=== PATIENT | male | born 1965 | race African-American/Black ===

== ENCOUNTER 2018-02-24 19:21 | Observation (INO) ==
[2018-02-24] MEDS ORDERED: 0.9 % Sodium Chloride 1,000 ML IVC ONE (19:25)
--- NOTE | 2018-02-24 19:31 | Emergency Department Note ---
Disposition Clinical Impression: Suicidal ideation Disposition: Still a Patient Referrals: Winston Hatch DO [Primary Care Provider] - Forms: ED Satisfaction Letter General Adult HPI - General Time Seen by Provider: 02/24/18 19:24 Nursing Notes Reviewed: Yes Vital Signs Reviewed: Yes - Related Data Home Medications Medication Instructions Recorded Confirmed Atenolol 01/27/17 Lisinopril 01/27/17 01/27/17 NIFEdipine 01/27/17 Simvastatin 01/27/17 Previous Rx's Medication Instructions Recorded Cetirizine HCl [Zyrtec] 10 mg PO DAILY #4 capsule 01/27/17 Ondansetron ODT [Zofran ODT] 4 mg SL Q6HR PRN #10 tab.rapdis 01/27/17 Allergies Allergy/AdvReac Type Severity Reaction Status Date / Time No Known Allergies Allergy Verified 01/27/17 10:08 Past Medical History - Past Medical History Medical history: Reports: hyperlipidemia, hypertension Surgical history: Reports: no surgical history Psychiatric history: Reports: no psych history - Social History Smoking Status: Never smoker Smokeless Tobacco Status: No Alcohol use: Reports: occasionally Drug use: Reports: none Course Vital Signs Temperature 98.1 F 02/24/18 19:26 Pulse Rate 87 02/24/18 19:26 Respiratory Rate 23 02/24/18 19:26 Blood Pressure 94/56 02/24/18 19:26 O2 Sat by Pulse Oximetry 91 02/24/18 19:26 Temperature 98.1 F 02/24/18 19:26 Pulse Rate 87 02/24/18 19:26 Respiratory Rate 23 02/24/18 19:26 Blood Pressure 94/56 02/24/18 19:26 O2 Sat by Pulse Oximetry 91 02/24/18 19:26 Oxygen Delivery Oxygen Delivery Room Air Medical Decision Making - [facility] Narrative Medical decision making narrative: 0 hrs.: Patient seen and evaluated here and he is done better he is awake and talking he is up and ambulatory. His alcohol 355. He is calm going to have to be sober for an exam by 1A so we will sign him out to the evening ER physician Dr. Herbert for [facility] management disposition. He did get 2 mg of Ativan here to help him calm down a bit I do not think he is in withdrawal at this point and I do not think he needs IV fluids as he had an IV and a pull that out; [employer] an IV in him and he was sees absolutely requires. Patient's in agreement and is calm at this time. Impressions are: Intoxication and suicidal ideations. - Lab Data Result diagrams: 02/24/18 20:21 02/24/18 20:21 Lab Results 02/24/18 02/24/18 02/24/18 Range/Units 19:57 19:57 20:21 WBC 7.0 (4.3-11.1) K/mcL RBC 4.63 (4.19-5.50) M/mcL Hgb 13.0 (12.9-16.9) g/dL Hct 38.4 (37.5-50.1) % MCV 82.9 L (83.0-100.0) fL MCH 28.1 (28.0-33.3) pg MCHC 33.9 (31.6-35.5) g/dL RDW 16.1 H (11.5-14.5) % Plt Count 298 (140-400) K/mcL MPV 9.5 (9.4-12.4) fL Immature Gran % 0.3 (0-4) % Seg Neutrophils % 72.9 % Lymphocytes % 20.1 % Monocytes % 5.7 % Eosinophils % 0.1 % Basophils % 0.9 % Neutrophils # 5.1 (1.6-8.9) K/mcL Lymphocytes # 1.4 (0.6-4.6) K/mcL Monocytes # 0.4 (0.0-1.3) K/mcL Eosinophils # 0.0 (0.0-0.6) K/mcL Basophils # 0.1 (0.0-0.2) K/mcL Sodium (136-145) mEq/L Potassium (3.5-5.1) mEq/L Chloride (98-107) mEq/L Carbon Dioxide (23-29) mEq/L BUN (6-20) mg/dL Creatinine (0.70-1.30) mg/dL Est GFR ( Amer) (> 60) Est GFR (Non-Af Amer) (> 60) BUN/Creatinine Ratio (6-26) Glucose (70-105) mg/dL Calculated Osmolality (280-300) Calcium (8.6-10.3) mg/dL Total Bilirubin (0.3-1.0) mg/dL AST (13-39) Units/L ALT (7-52) Units/L Alkaline Phosphatase (34-104) Units/L Troponin I (< 0.04) ng/mL Serum Total Protein (6.4-8.9) g/dL Albumin (3.5-5.7) g/dL Globulin (2.4-3.5) g/dL Albumin/Globulin Ratio (1.1-2.2) Lipase (11-82) Units/L Urine Color Yellow (Yellow) Urine Clarity Cloudy A (Clear) Urine pH 6.0 (5.0-8.0) pH Units Ur Specific Byers 1.019 (1.010-1.025) Urine Protein 30 H (Neg-Trace) mg/dL Urine Glucose (UA) Normal (Normal) mg/dL Urine Ketones Trace H (Negative) mg/dL Urine Blood Moderate H (Negative) Urine Nitrite Negative (Negative) Urine Bilirubin Negative (Negative) Urine Urobilinogen Normal (Normal) mg/dL Ur Leukocyte Esterase Negative (Negative) Urine Microscopic RBC 0-3 (0-3) per hpf Urine Microscopic WBC 0-3 (0-3) per hpf Ur Squamous Epith Cells Many H (None-Few) per lpf Urine Bacteria None Seen (None-Few) per hpf Hyaline Casts Moderate H (None-Few) per lpf Ur Culture Indicated? NO (NO) Salicylates (15.0-30.0) mg/dL Urine Opiates Screen Negative (Yinvva=290) ng/mL Acetaminophen (10-20) mcg/mL Ur Barbiturates Screen Negative (Yclwmh=668) ng/mL Ur Phencyclidine Scrn Negative (Cutoff=25) ng/mL Ur Amphetamines Screen Negative (Nnxetu=9376) ng/mL U Benzodiazepines Scrn Negative (Furtmk=328) ng/mL Urine Cocaine Screen Negative (Cutoff= 300) ng/mL U Marijuana (THC) Screen Negative (Cutoff = 50) ng/mL Ur Drug Screen Interp See Below Ethyl Alcohol (Less than 10) mg/dL 02/24/18 Range/Units 20:21 WBC (4.3-11.1) K/mcL RBC (4.19-5.50) M/mcL Hgb (12.9-16.9) g/dL Hct (37.5-50.1) % MCV (83.0-100.0) fL MCH (28.0-33.3) pg MCHC (31.6-35.5) g/dL RDW (11.5-14.5) % Plt Count (140-400) K/mcL MPV (9.4-12.4) fL Immature Gran % (0-4) % Seg Neutrophils % % Lymphocytes % % Monocytes % % Eosinophils % % Basophils % % Neutrophils # (1.6-8.9) K/mcL Lymphocytes # (0.6-4.6) K/mcL Monocytes # (0.0-1.3) K/mcL Eosinophils # (0.0-0.6) K/mcL Basophils # (0.0-0.2) K/mcL Sodium 141 (136-145) mEq/L Potassium 3.6 (3.5-5.1) mEq/L Chloride 103 (98-107) mEq/L Carbon Dioxide 18 L (23-29) mEq/L BUN 23 H (6-20) mg/dL Creatinine 1.38 H (0.70-1.30) mg/dL Est GFR ( Amer) > 60 (> 60) Est GFR (Non-Af Amer) 54 L (> 60) BUN/Creatinine Ratio 17 (6-26) Glucose 126 H (70-105) mg/dL Calculated Osmolality 297 (280-300) Calcium 8.9 (8.6-10.3) mg/dL Total Bilirubin 1.6 H (0.3-1.0) mg/dL AST 102 H (13-39) Units/L ALT 44 (7-52) Units/L Alkaline Phosphatase 56 (34-104) Units/L Troponin I < 0.03 (< 0.04) ng/mL Serum Total Protein 7.2 (6.4-8.9) g/dL Albumin 4.4 (3.5-5.7) g/dL Globulin 2.8 (2.4-3.5) g/dL Albumin/Globulin Ratio 1.6 (1.1-2.2) Lipase 59 (11-82) Units/L Urine Color (Yellow) Urine Clarity (Clear) Urine pH (5.0-8.0) pH Units Ur Specific Byers (1.010-1.025) Urine Protein (Neg-Trace) mg/dL Urine Glucose (UA) (Normal) mg/dL Urine Ketones (Negative) mg/dL Urine Blood (Negative) Urine Nitrite (Negative) Urine Bilirubin (Negative) Urine Urobilinogen (Normal) mg/dL Ur Leukocyte Esterase (Negative) Urine Microscopic RBC (0-3) per hpf Urine Microscopic WBC (0-3) per hpf Ur Squamous Epith Cells (None-Few) per lpf Urine Bacteria (None-Few) per hpf Hyaline Casts (None-Few) per lpf Ur Culture Indicated? (NO) Salicylates < 2.5 L (15.0-30.0) mg/dL Urine Opiates Screen (Urgnec=350) ng/mL Acetaminophen < 10 L (10-20) mcg/mL Ur Barbiturates Screen (Hatkgt=656) ng/mL Ur Phencyclidine Scrn (Cutoff=25) ng/mL Ur Amphetamines Screen (Arytox=2305) ng/mL U Benzodiazepines Scrn (Zlqwet=720) ng/mL Urine Cocaine Screen (Cutoff= 300) ng/mL U Marijuana (THC) Screen (Cutoff = 50) ng/mL Ur Drug Screen Interp Ethyl Alcohol 344 H (Less than 10) mg/dL Attestation Statement - Attestation Attestation: This documentation is done with the assistance of Dragon dictation. Despite efforts made to ensure accuracy, there may be inaccuracies in retail customer service representative or spelling and typographical errors. I examined this patient and my medical decision-making was reviewed with the Resident Physician. I agree with the documented findings, disposition and treatment plan as described except to the extent set forth below. Patient seen and evaluated on arrival with EMS and Dr. Roque, I agree with his evaluation and management plan, supervise care the patient stay. Patient was making suicidal comments to his family they called the squad they said there is multiple guns in the household or alcohol. If hypertensive meds there but they appeared to be correct he denies overdose. He does appear intoxicated. He has not been very cooperative. But is not trying to assault anyone. We will place him on a 72 or hold check labs hydrate with fluids CT has had EKG alcohol level urine drug screen. And then determine best placement for him with every medical or that will be psychiatric.
--- NOTE | 2018-02-24 19:33 | Emergency Department Note ---
Disposition Clinical Impression: Suicidal ideation, Drug-induced psychotic disorder, Alcohol intoxication Disposition: Still a Patient Referrals: Winston Hatch DO [Non-Partnered Physician] - Forms: ED Satisfaction Letter General Adult HPI - General Chief complaint: ED Psychiatric Symptoms Stated complaint: Altered mental status Time Seen by Provider: 02/24/18 19:24 Source: EMS Mode of arrival: EMS Limitations: altered mental status Nursing Notes Reviewed: Yes Vital Signs Reviewed: Yes - History of Present Illness HPI Narrative: 52-year-old male unknown medical history presents to the ER via EMS due to altered mental status. EMS reports they were called by family. They state that the family told them that he was calling them and having suicidal thoughts. When they picked him up he was altered and sluggish to respond. He kept telling EMS sorry. Upon arrival he appears intoxicated. When asked anything he rolls over and he says to leave him alone. He provides no other medical history. No other complaints. Onset (ago): unknown Pain Scale: 0 - Related Data Home Medications Medication Instructions Recorded Confirmed Atenolol 01/27/17 Lisinopril 01/27/17 01/27/17 NIFEdipine 01/27/17 Simvastatin 01/27/17 Previous Rx's Medication Instructions Recorded Cetirizine HCl [Zyrtec] 10 mg PO DAILY #4 capsule 01/27/17 Ondansetron ODT [Zofran ODT] 4 mg SL Q6HR PRN #10 tab.rapdis 01/27/17 Allergies Allergy/AdvReac Type Severity Reaction Status Date / Time No Known Allergies Allergy Verified 01/27/17 10:08 Limitations: ROS unobtainable due to patients medical condition Past Medical History - Past Medical History Source: unable to obtain Medical history: Reports: hyperlipidemia, hypertension Surgical history: Reports: no surgical history Psychiatric history: Reports: no psych history - Social History Smoking Status: Never smoker Smokeless Tobacco Status: No Alcohol use: Reports: occasionally Drug use: Reports: none Physical Exam - General Limitations: altered mental status General appearance: appears intoxicated - Head Head exam: atraumatic, normocephalic - Eye Eye exam: Present: normal appearance - ENT ENT exam: normal exam - Neck Neck exam: Present: normal inspection - Chest Chest inspection: Present: normal inspection, symmetric chest wall rise - Respiratory Respiratory exam: Present: normal lung sounds bilaterally - Cardiovascular Cardiovascular exam: Present: regular rate, normal rhythm, normal heart sounds - Abdominal Exam Abdominal exam: Present: soft, Non-Tender. Absent: tenderness - Extremities Exam Extremities exam: Present: normal inspection - Expanded Upper Extremity Exam Shoulder exam: Present: normal inspection Arm exam: Present: normal inspection Elbow exam: Present: normal inspection Forearm/Wrist exam: Present: normal inspection Hand exam: Present: normal inspection - Expanded Lower Extremity Exam Hip/Pelvis exam: Present: normal inspection Upper leg exam: Present: normal inspection Knee exam: Present: normal inspection Lower leg exam: Present: normal inspection Ankle exam: Present: normal inspection Foot/toe exam: Present: normal inspection - Neurological Exam Neurological exam: Present: other (Altered, appears intoxicated.) Course Course Narrative: Patient seen and examined. Vital signs reviewed. Unable to obtain history. Plan for CT head, labs and urinalysis. Vital Signs Temperature 98.1 F 02/24/18 19:26 Pulse Rate 87 02/24/18 19:26 Respiratory Rate 23 02/24/18 19:26 Blood Pressure 94/56 02/24/18 19:26 O2 Sat by Pulse Oximetry 91 02/24/18 19:26 Temperature 98.1 F 02/24/18 19:26 Pulse Rate 91 02/24/18 22:17 Respiratory Rate 18 02/24/18 22:17 Blood Pressure 122/73 02/24/18 22:17 O2 Sat by Pulse Oximetry 95 02/24/18 22:17 Oxygen Delivery Oxygen Delivery Room Air Medical Decision Making - [facility] Narrative Medical decision making narrative: 2220 hrs.: Patient's alcohol level is elevated. His alcohol level needs be below 100 before 1A was evaluating. No sign him out to the evening ER physician Dr. Herbert for further management disposition. patient remains in her 72R hold. - Lab Data Result diagrams: 02/24/18 20:21 02/24/18 20:21 Lab Results 02/24/18 02/24/18 02/24/18 Range/Units 19:57 19:57 20:21 WBC 7.0 (4.3-11.1) K/mcL RBC 4.63 (4.19-5.50) M/mcL Hgb 13.0 (12.9-16.9) g/dL Hct 38.4 (37.5-50.1) % MCV 82.9 L (83.0-100.0) fL MCH 28.1 (28.0-33.3) pg MCHC 33.9 (31.6-35.5) g/dL RDW 16.1 H (11.5-14.5) % Plt Count 298 (140-400) K/mcL MPV 9.5 (9.4-12.4) fL Immature Gran % 0.3 (0-4) % Seg Neutrophils % 72.9 % Lymphocytes % 20.1 % Monocytes % 5.7 % Eosinophils % 0.1 % Basophils % 0.9 % Neutrophils # 5.1 (1.6-8.9) K/mcL Lymphocytes # 1.4 (0.6-4.6) K/mcL Monocytes # 0.4 (0.0-1.3) K/mcL Eosinophils # 0.0 (0.0-0.6) K/mcL Basophils # 0.1 (0.0-0.2) K/mcL Sodium (136-145) mEq/L Potassium (3.5-5.1) mEq/L Chloride (98-107) mEq/L Carbon Dioxide (23-29) mEq/L BUN (6-20) mg/dL Creatinine (0.70-1.30) mg/dL Est GFR ( Amer) (> 60) Est GFR (Non-Af Amer) (> 60) BUN/Creatinine Ratio (6-26) Glucose (70-105) mg/dL Calculated Osmolality (280-300) Calcium (8.6-10.3) mg/dL Total Bilirubin (0.3-1.0) mg/dL AST (13-39) Units/L ALT (7-52) Units/L Alkaline Phosphatase (34-104) Units/L Troponin I (< 0.04) ng/mL Serum Total Protein (6.4-8.9) g/dL Albumin (3.5-5.7) g/dL Globulin (2.4-3.5) g/dL Albumin/Globulin Ratio (1.1-2.2) Lipase (11-82) Units/L Urine Color Yellow (Yellow) Urine Clarity Cloudy A (Clear) Urine pH 6.0 (5.0-8.0) pH Units Ur Specific Kingsley 1.019 (1.010-1.025) Urine Protein 30 H (Neg-Trace) mg/dL Urine Glucose (UA) Normal (Normal) mg/dL Urine Ketones Trace H (Negative) mg/dL Urine Blood Moderate H (Negative) Urine Nitrite Negative (Negative) Urine Bilirubin Negative (Negative) Urine Urobilinogen Normal (Normal) mg/dL Ur Leukocyte Esterase Negative (Negative) Urine Microscopic RBC 0-3 (0-3) per hpf Urine Microscopic WBC 0-3 (0-3) per hpf Ur Squamous Epith Cells Many H (None-Few) per lpf Urine Bacteria None Seen (None-Few) per hpf Hyaline Casts Moderate H (None-Few) per lpf Ur Culture Indicated? NO (NO) Salicylates (15.0-30.0) mg/dL Urine Opiates Screen Negative (Apcyyn=991) ng/mL Acetaminophen (10-20) mcg/mL Ur Barbiturates Screen Negative (Jwrnts=107) ng/mL Ur Phencyclidine Scrn Negative (Cutoff=25) ng/mL Ur Amphetamines Screen Negative (Hxqxxq=1219) ng/mL U Benzodiazepines Scrn Negative (Vwexef=280) ng/mL Urine Cocaine Screen Negative (Cutoff= 300) ng/mL U Marijuana (THC) Screen Negative (Cutoff = 50) ng/mL Ur Drug Screen Interp See Below Ethyl Alcohol (Less than 10) mg/dL 02/24/18 Range/Units 20:21 WBC (4.3-11.1) K/mcL RBC (4.19-5.50) M/mcL Hgb (12.9-16.9) g/dL Hct (37.5-50.1) % MCV (83.0-100.0) fL MCH (28.0-33.3) pg MCHC (31.6-35.5) g/dL RDW (11.5-14.5) % Plt Count (140-400) K/mcL MPV (9.4-12.4) fL Immature Gran % (0-4) % Seg Neutrophils % % Lymphocytes % % Monocytes % % Eosinophils % % Basophils % % Neutrophils # (1.6-8.9) K/mcL Lymphocytes # (0.6-4.6) K/mcL Monocytes # (0.0-1.3) K/mcL Eosinophils # (0.0-0.6) K/mcL Basophils # (0.0-0.2) K/mcL Sodium 141 (136-145) mEq/L Potassium 3.6 (3.5-5.1) mEq/L Chloride 103 (98-107) mEq/L Carbon Dioxide 18 L (23-29) mEq/L BUN 23 H (6-20) mg/dL Creatinine 1.38 H (0.70-1.30) mg/dL Est GFR ( Amer) > 60 (> 60) Est GFR (Non-Af Amer) 54 L (> 60) BUN/Creatinine Ratio 17 (6-26) Glucose 126 H (70-105) mg/dL Calculated Osmolality 297 (280-300) Calcium 8.9 (8.6-10.3) mg/dL Total Bilirubin 1.6 H (0.3-1.0) mg/dL AST 102 H (13-39) Units/L ALT 44 (7-52) Units/L Alkaline Phosphatase 56 (34-104) Units/L Troponin I < 0.03 (< 0.04) ng/mL Serum Total Protein 7.2 (6.4-8.9) g/dL Albumin 4.4 (3.5-5.7) g/dL Globulin 2.8 (2.4-3.5) g/dL Albumin/Globulin Ratio 1.6 (1.1-2.2) Lipase 59 (11-82) Units/L Urine Color (Yellow) Urine Clarity (Clear) Urine pH (5.0-8.0) pH Units Ur Specific Kingsley (1.010-1.025) Urine Protein (Neg-Trace) mg/dL Urine Glucose (UA) (Normal) mg/dL Urine Ketones (Negative) mg/dL Urine Blood (Negative) Urine Nitrite (Negative) Urine Bilirubin (Negative) Urine Urobilinogen (Normal) mg/dL Ur Leukocyte Esterase (Negative) Urine Microscopic RBC (0-3) per hpf Urine Microscopic WBC (0-3) per hpf Ur Squamous Epith Cells (None-Few) per lpf Urine Bacteria (None-Few) per hpf Hyaline Casts (None-Few) per lpf Ur Culture Indicated? (NO) Salicylates < 2.5 L (15.0-30.0) mg/dL Urine Opiates Screen (Feivjh=838) ng/mL Acetaminophen < 10 L (10-20) mcg/mL Ur Barbiturates Screen (Zpxzbk=751) ng/mL Ur Phencyclidine Scrn (Cutoff=25) ng/mL Ur Amphetamines Screen (Mjfgkw=8146) ng/mL U Benzodiazepines Scrn (Hvweki=515) ng/mL Urine Cocaine Screen (Cutoff= 300) ng/mL U Marijuana (THC) Screen (Cutoff = 50) ng/mL Ur Drug Screen Interp Ethyl Alcohol 344 H (Less than 10) mg/dL - EKG Data EKG #1 EKG attestation: Yes I reviewed and interpreted this EKG. EKG results narrative: EKG demonstrates sinus rhythm rate 94 bpm. Normal axis. Normal intervals. Normal R-wave progression. Nonspecific ST-T wave changes in the inferior and lateral leads. No gross ST elevations or depressions.
[2018-02-24 20:16] LABS: Bilirubin,Urine Negative (Negative); Blood,Urine Moderate (Negative); Clarity,Urine Cloudy (Clear); Color,Urine Yellow (Yellow); Glucose,Urine (UA) Normal (Normal); Ketones,Urine Trace mg/dL (Negative); Leukocyte Esterase,Urine Negative (Negative); Nitrite,Urine Negative (Negative); Protein,Urine 30 mg/dL (Neg-Trace); Specific Gravity,Urine 1.019 (1.010-1.025); Urobilinogen,Urine Normal (Normal)
[2018-02-24 20:18] LABS: Amphetamine Screen,Urine Negative ng/mL (Cutoff=1000); Bacteria,Urine None Seen per hpf (None-Few); Barbiturate Screen,Urine Negative ng/mL (Cutoff=200); Benzodiazepines Screen,Urine Negative ng/mL (Cutoff=200); Cannabinoid Screen,Urine Negative ng/mL (Cutoff = 50); Cocaine Screen,Urine Negative ng/mL (Cutoff= 300); Hyaline Casts,Urine Moderate per lpf (None-Few); Opiate Screen,Urine Negative ng/mL (Cutoff=300); Phencyclidine Screen,Urine Negative ng/mL (Cutoff=25); RBC,Urine 0-3 per hpf (0-3); Squamous Epithelial Cell,Urine Many per lpf (None-Few); WBC,Urine 0-3 per hpf (0-3)
[2018-02-24 20:33] LABS: Basophils # 0.1 K/mcL (0.0-0.2); Basophils % 0.9 %; Eosinophils % 0.1 %; Hematocrit 38.4 % (37.5-50.1); Immature Granulocytes % 0.3 % (0-4); Lymphocytes # 1.4 K/mcL (0.6-4.6); Lymphocytes % 20.1 %; Mean Corpuscular HGB Conc 33.9 g/dL (31.6-35.5); Mean Corpuscular Hemoglobin 28.1 pg (28.0-33.3); Mean Corpuscular Volume 82.9 fL (83.0-100.0); Mean Platelet Volume 9.5 fL (9.4-12.4); Monocytes # 0.4 K/mcL (0.0-1.3); Monocytes % 5.7 %; Neutrophils # 5.1 K/mcL (1.6-8.9); Platelet Count 298 K/mcL (140-400); Red Blood Count 4.63 M/mcL (4.19-5.50); Red Cell Distribution Width 16.1 % (11.5-14.5); Segmented Neutrophils % 72.9 %
[2018-02-24] MEDS: *HR* LORazepam 1 MG TABLET PO ONE (20:49)
[2018-02-24 20:54] LABS: Acetaminophen < 10 mcg/mL (10-20); Alanine Aminotransferase 44 Units/L (7-52); Albumin 4.4 g/dL (3.5-5.7); Albumin/Globulin Ratio 1.6 (1.1-2.2); Alkaline Phosphatase 56 Units/L (34-104); Aspartate Amino Transferase 102 Units/L (13-39); BUN/Creatinine Ratio 17 (6-26); Bilirubin,Total 1.6 mg/dL (0.3-1.0); Blood Urea Nitrogen 23 mg/dL (6-20); Calcium 8.9 mg/dL (8.6-10.3); Carbon Dioxide 18 mEq/L (23-29); Chloride 103 mEq/L (98-107); Ethanol 344 mg/dL (Less than 10); Globulin 2.8 g/dL (2.4-3.5); Glucose 126 mg/dL (70-105); Lipase 59 Units/L (11-82); Osmolality,Calculated 297 (280-300); Potassium 3.6 mEq/L (3.5-5.1); Salicylate < 2.5 mg/dL (15.0-30.0); Sodium 141 mEq/L (136-145); Total Protein 7.2 g/dL (6.4-8.9); Troponin I < 0.03 ng/mL (< 0.04); eGFR For African Americans > 60 (> 60); eGFR For Non-African Americans 54 (> 60)
--- NOTE | 2018-02-25 07:44 | Emergency Department Note ---
Disposition Clinical Impression: Suicidal ideation, Drug-induced psychotic disorder, Alcohol intoxication Disposition: Still a Patient Referrals: Winston Hatch DO [Non-Partnered Physician] - Forms: ED Satisfaction Letter General Adult HPI - General Chief complaint: ED Psychiatric Symptoms Stated complaint: Altered mental status Time Seen by Provider: 02/24/18 19:24 Source: EMS Mode of arrival: EMS Limitations: altered mental status - History of Present Illness Pain Scale: 0 - Related Data Home Medications Medication Instructions Recorded Confirmed Atenolol 01/27/17 Lisinopril 01/27/17 01/27/17 NIFEdipine 01/27/17 Simvastatin 01/27/17 Previous Rx's Medication Instructions Recorded Cetirizine HCl [Zyrtec] 10 mg PO DAILY #4 capsule 01/27/17 Ondansetron ODT [Zofran ODT] 4 mg SL Q6HR PRN #10 tab.rapdis 01/27/17 Allergies Allergy/AdvReac Type Severity Reaction Status Date / Time No Known Allergies Allergy Verified 01/27/17 10:08 Past Medical History - Past Medical History Medical history: Reports: hyperlipidemia, hypertension Surgical history: Reports: no surgical history Psychiatric history: Reports: no psych history - Social History Smoking Status: Never smoker Smokeless Tobacco Status: No Alcohol use: Reports: occasionally Drug use: Reports: none Physical Exam - General Limitations: altered mental status General appearance: appears intoxicated Course Course Narrative: This patient was signed out at shift change from Dr. Roque and Dr. Pastor. Please refer to their notes for complete details of the history and physical examination. Patient presented for some altered mental status. He reportedly also had made some suicidal threats or statements. He was found to have an alcohol level of 344. Patient received Ativan 2 mg by mouth during the evening. 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 At shift change patient is still awaiting a repeat alcohol level later this morning and then will be evaluated by the psychiatry service. Patient is signed out to the [facility] dayshift physician, Dr. Bindu Ferris. Vital Signs Temperature 98.1 F 02/24/18 19:26 Pulse Rate 87 02/24/18 19:26 Respiratory Rate 23 02/24/18 19:26 Blood Pressure 94/56 02/24/18 19:26 O2 Sat by Pulse Oximetry 91 02/24/18 19:26 Temperature 98.1 F 02/24/18 19:26 Pulse Rate 92 02/25/18 03:40 Respiratory Rate 18 02/25/18 03:40 Blood Pressure 108/71 02/25/18 03:40 O2 Sat by Pulse Oximetry 94 02/25/18 03:40 Oxygen Delivery Oxygen Delivery Room Air Medical Decision Making - Lab Data Result diagrams: 02/24/18 20:21 02/24/18 20:21 Lab Results 02/24/18 02/24/18 02/24/18 Range/Units 19:57 19:57 20:21 WBC 7.0 (4.3-11.1) K/mcL RBC 4.63 (4.19-5.50) M/mcL Hgb 13.0 (12.9-16.9) g/dL Hct 38.4 (37.5-50.1) % MCV 82.9 L (83.0-100.0) fL MCH 28.1 (28.0-33.3) pg MCHC 33.9 (31.6-35.5) g/dL RDW 16.1 H (11.5-14.5) % Plt Count 298 (140-400) K/mcL MPV 9.5 (9.4-12.4) fL Immature Gran % 0.3 (0-4) % Seg Neutrophils % 72.9 % Lymphocytes % 20.1 % Monocytes % 5.7 % Eosinophils % 0.1 % Basophils % 0.9 % Neutrophils # 5.1 (1.6-8.9) K/mcL Lymphocytes # 1.4 (0.6-4.6) K/mcL Monocytes # 0.4 (0.0-1.3) K/mcL Eosinophils # 0.0 (0.0-0.6) K/mcL Basophils # 0.1 (0.0-0.2) K/mcL Sodium (136-145) mEq/L Potassium (3.5-5.1) mEq/L Chloride (98-107) mEq/L Carbon Dioxide (23-29) mEq/L BUN (6-20) mg/dL Creatinine (0.70-1.30) mg/dL Est GFR ( Amer) (> 60) Est GFR (Non-Af Amer) (> 60) BUN/Creatinine Ratio (6-26) Glucose (70-105) mg/dL Calculated Osmolality (280-300) Calcium (8.6-10.3) mg/dL Total Bilirubin (0.3-1.0) mg/dL AST (13-39) Units/L ALT (7-52) Units/L Alkaline Phosphatase (34-104) Units/L Troponin I (< 0.04) ng/mL Serum Total Protein (6.4-8.9) g/dL Albumin (3.5-5.7) g/dL Globulin (2.4-3.5) g/dL Albumin/Globulin Ratio (1.1-2.2) Lipase (11-82) Units/L Urine Color Yellow (Yellow) Urine Clarity Cloudy A (Clear) Urine pH 6.0 (5.0-8.0) pH Units Ur Specific [place] 1.019 (1.010-1.025) Urine Protein 30 H (Neg-Trace) mg/dL Urine Glucose (UA) Normal (Normal) mg/dL Urine Ketones Trace H (Negative) mg/dL Urine Blood Moderate H (Negative) Urine Nitrite Negative (Negative) Urine Bilirubin Negative (Negative) Urine Urobilinogen Normal (Normal) mg/dL Ur Leukocyte Esterase Negative (Negative) Urine Microscopic RBC 0-3 (0-3) per hpf Urine Microscopic WBC 0-3 (0-3) per hpf Ur Squamous Epith Cells Many H (None-Few) per lpf Urine Bacteria None Seen (None-Few) per hpf Hyaline Casts Moderate H (None-Few) per lpf Ur Culture Indicated? NO (NO) Salicylates (15.0-30.0) mg/dL Urine Opiates Screen Negative (Bjyvvr=367) ng/mL Acetaminophen (10-20) mcg/mL Ur Barbiturates Screen Negative (Ohyloe=285) ng/mL Ur Phencyclidine Scrn Negative (Cutoff=25) ng/mL Ur Amphetamines Screen Negative (Zzpkjq=1698) ng/mL U Benzodiazepines Scrn Negative (Dfyacd=768) ng/mL Urine Cocaine Screen Negative (Cutoff= 300) ng/mL U Marijuana (THC) Screen Negative (Cutoff = 50) ng/mL Ur Drug Screen Interp See Below Ethyl Alcohol (Less than 10) mg/dL 02/24/18 02/25/18 Range/Units 20:21 01:42 WBC (4.3-11.1) K/mcL RBC (4.19-5.50) M/mcL Hgb (12.9-16.9) g/dL Hct (37.5-50.1) % MCV (83.0-100.0) fL MCH (28.0-33.3) pg MCHC (31.6-35.5) g/dL RDW (11.5-14.5) % Plt Count (140-400) K/mcL MPV (9.4-12.4) fL Immature Gran % (0-4) % Seg Neutrophils % % Lymphocytes % % Monocytes % % Eosinophils % % Basophils % % Neutrophils # (1.6-8.9) K/mcL Lymphocytes # (0.6-4.6) K/mcL Monocytes # (0.0-1.3) K/mcL Eosinophils # (0.0-0.6) K/mcL Basophils # (0.0-0.2) K/mcL Sodium 141 (136-145) mEq/L Potassium 3.6 (3.5-5.1) mEq/L Chloride 103 (98-107) mEq/L Carbon Dioxide 18 L (23-29) mEq/L BUN 23 H (6-20) mg/dL Creatinine 1.38 H (0.70-1.30) mg/dL Est GFR ( Amer) > 60 (> 60) Est GFR (Non-Af Amer) 54 L (> 60) BUN/Creatinine Ratio 17 (6-26) Glucose 126 H (70-105) mg/dL Calculated Osmolality 297 (280-300) Calcium 8.9 (8.6-10.3) mg/dL Total Bilirubin 1.6 H (0.3-1.0) mg/dL AST 102 H (13-39) Units/L ALT 44 (7-52) Units/L Alkaline Phosphatase 56 (34-104) Units/L Troponin I < 0.03 (< 0.04) ng/mL Serum Total Protein 7.2 (6.4-8.9) g/dL Albumin 4.4 (3.5-5.7) g/dL Globulin 2.8 (2.4-3.5) g/dL Albumin/Globulin Ratio 1.6 (1.1-2.2) Lipase 59 (11-82) Units/L Urine Color (Yellow) Urine Clarity (Clear) Urine pH (5.0-8.0) pH Units Ur Specific [place] (1.010-1.025) Urine Protein (Neg-Trace) mg/dL Urine Glucose (UA) (Normal) mg/dL Urine Ketones (Negative) mg/dL Urine Blood (Negative) Urine Nitrite (Negative) Urine Bilirubin (Negative) Urine Urobilinogen (Normal) mg/dL Ur Leukocyte Esterase (Negative) Urine Microscopic RBC (0-3) per hpf Urine Microscopic WBC (0-3) per hpf Ur Squamous Epith Cells (None-Few) per lpf Urine Bacteria (None-Few) per hpf Hyaline Casts (None-Few) per lpf Ur Culture Indicated? (NO) Salicylates < 2.5 L (15.0-30.0) mg/dL Urine Opiates Screen (Hnvhax=422) ng/mL Acetaminophen < 10 L (10-20) mcg/mL Ur Barbiturates Screen (Pekoyj=217) ng/mL Ur Phencyclidine Scrn (Cutoff=25) ng/mL Ur Amphetamines Screen (Epmimg=0216) ng/mL U Benzodiazepines Scrn (Tzbnvx=331) ng/mL Urine Cocaine Screen (Cutoff= 300) ng/mL U Marijuana (THC) Screen (Cutoff = 50) ng/mL Ur Drug Screen Interp Ethyl Alcohol 344 H 233 H (Less than 10) mg/dL
[2018-02-25] MEDS ORDERED: *HR* LORazepam 2 MG/ML VIAL IVP ONE (12:37)
[2018-02-25] MEDS ORDERED: MVI, adult with vitamin K 10 ML in 0.9 % Sodium Chloride 1,000 ML IVC ONE (12:37)
[2018-02-25] MEDS ORDERED: Folic Acid 1 MG in D5% in Water 50 ML IVPB STA (12:42)
[2018-02-25] MEDS ORDERED: Thiamine (B-1) 100 MG in D5% in Water 50 ML IVPB STA (12:42)
--- NOTE | 2018-02-25 12:46 | Emergency Department Note ---
Disposition Clinical Impression: Suicidal ideation, Drug-induced psychotic disorder, Alcohol intoxication Disposition: Admitted As Inpatient Condition: Good Referrals: Winston Hatch, [Non-Partnered Physician] - Forms: ED Satisfaction Letter Time of Disposition: 12:47 General Adult HPI - General Chief complaint: ED Psychiatric Symptoms Stated complaint: Altered mental status Time Seen by Provider: 02/24/18 19:24 Source: EMS Mode of arrival: EMS Limitations: altered mental status - History of Present Illness Pain Scale: 0 - Related Data Allergies Allergy/AdvReac Type Severity Reaction Status Date / Time No Known Allergies Allergy Verified 01/27/17 10:08 Past Medical History - Past Medical History Medical history: Reports: hyperlipidemia, hypertension Surgical history: Reports: no surgical history Psychiatric history: Reports: no psych history - Social History Smoking Status: Never smoker Smokeless Tobacco Status: No Alcohol use: Reports: occasionally Drug use: Reports: none Physical Exam - General Limitations: altered mental status General appearance: appears intoxicated Course Course Narrative: accepted sign out from Dr. Woods/Ramón and rosario is SI with plan to shoot himself with his guns at home and has has mutliple pysch complicatiosn in the past. WE will continue to evalute in the deparmtent and monitor the declininc alcohol level as is last draw was 200s and will need to be belwo 80s before 1A evluation. Rosario will be monitored with withdrawl as well - Reevaluation(s) Reevaluation #1: rosario appears to be more tremeulous and tehre is concern for ETOH withdrawl at this time. He admits to a more chornic history of alcohol intoxication and has had tremors in the past. We will admit to medicine for ETOH withdrawl and SI. Time: 12:38 - Consultations Consultation #1: discussed case with the hospitalist Dr. Burger and he has accepted alok tot his service Time: 12:45 Vital Signs Temperature 98.1 F 02/24/18 19:26 Pulse Rate 87 02/24/18 19:26 Respiratory Rate 23 02/24/18 19:26 Blood Pressure 94/56 02/24/18 19:26 O2 Sat by Pulse Oximetry 91 02/24/18 19:26 Temperature 98.1 F 02/24/18 19:26 Pulse Rate 105 02/25/18 09:24 Respiratory Rate 18 02/25/18 09:24 Blood Pressure 139/93 02/25/18 09:24 O2 Sat by Pulse Oximetry 96 02/25/18 09:24 Oxygen Delivery Oxygen Delivery Room Air Medical Decision Making - Lab Data Result diagrams: 02/24/18 20:21 02/24/18 20:21 Lab Results 02/24/18 02/24/18 02/24/18 Range/Units 19:57 19:57 20:21 WBC 7.0 (4.3-11.1) K/mcL RBC 4.63 (4.19-5.50) M/mcL Hgb 13.0 (12.9-16.9) g/dL Hct 38.4 (37.5-50.1) % MCV 82.9 L (83.0-100.0) fL MCH 28.1 (28.0-33.3) pg MCHC 33.9 (31.6-35.5) g/dL RDW 16.1 H (11.5-14.5) % Plt Count 298 (140-400) K/mcL MPV 9.5 (9.4-12.4) fL Immature Gran % 0.3 (0-4) % Seg Neutrophils % 72.9 % Lymphocytes % 20.1 % Monocytes % 5.7 % Eosinophils % 0.1 % Basophils % 0.9 % Neutrophils # 5.1 (1.6-8.9) K/mcL Lymphocytes # 1.4 (0.6-4.6) K/mcL Monocytes # 0.4 (0.0-1.3) K/mcL Eosinophils # 0.0 (0.0-0.6) K/mcL Basophils # 0.1 (0.0-0.2) K/mcL Sodium (136-145) mEq/L Potassium (3.5-5.1) mEq/L Chloride (98-107) mEq/L Carbon Dioxide (23-29) mEq/L BUN (6-20) mg/dL Creatinine (0.70-1.30) mg/dL Est GFR ( Amer) (> 60) Est GFR (Non-Af Amer) (> 60) BUN/Creatinine Ratio (6-26) Glucose (70-105) mg/dL Calculated Osmolality (280-300) Calcium (8.6-10.3) mg/dL Total Bilirubin (0.3-1.0) mg/dL AST (13-39) Units/L ALT (7-52) Units/L Alkaline Phosphatase (34-104) Units/L Troponin I (< 0.04) ng/mL Serum Total Protein (6.4-8.9) g/dL Albumin (3.5-5.7) g/dL Globulin (2.4-3.5) g/dL Albumin/Globulin Ratio (1.1-2.2) Lipase (11-82) Units/L Urine Color Yellow (Yellow) Urine Clarity Cloudy A (Clear) Urine pH 6.0 (5.0-8.0) pH Units Ur Specific [place] 1.019 (1.010-1.025) Urine Protein 30 H (Neg-Trace) mg/dL Urine Glucose (UA) Normal (Normal) mg/dL Urine Ketones Trace H (Negative) mg/dL Urine Blood Moderate H (Negative) Urine Nitrite Negative (Negative) Urine Bilirubin Negative (Negative) Urine Urobilinogen Normal (Normal) mg/dL Ur Leukocyte Esterase Negative (Negative) Urine Microscopic RBC 0-3 (0-3) per hpf Urine Microscopic WBC 0-3 (0-3) per hpf Ur Squamous Epith Cells Many H (None-Few) per lpf Urine Bacteria None Seen (None-Few) per hpf Hyaline Casts Moderate H (None-Few) per lpf Ur Culture Indicated? NO (NO) Salicylates (15.0-30.0) mg/dL Urine Opiates Screen Negative (Wzldky=948) ng/mL Acetaminophen (10-20) mcg/mL Ur Barbiturates Screen Negative (Pgtqce=231) ng/mL Ur Phencyclidine Scrn Negative (Cutoff=25) ng/mL Ur Amphetamines Screen Negative (Jbmifs=8729) ng/mL U Benzodiazepines Scrn Negative (Yksdsg=930) ng/mL Urine Cocaine Screen Negative (Cutoff= 300) ng/mL U Marijuana (THC) Screen Negative (Cutoff = 50) ng/mL Ur Drug Screen Interp See Below Ethyl Alcohol (Less than 10) mg/dL 02/24/18 02/25/18 02/25/18 Range/Units 20:21 01:42 10:58 WBC (4.3-11.1) K/mcL RBC (4.19-5.50) M/mcL Hgb (12.9-16.9) g/dL Hct (37.5-50.1) % MCV (83.0-100.0) fL MCH (28.0-33.3) pg MCHC (31.6-35.5) g/dL RDW (11.5-14.5) % Plt Count (140-400) K/mcL MPV (9.4-12.4) fL Immature Gran % (0-4) % Seg Neutrophils % % Lymphocytes % % Monocytes % % Eosinophils % % Basophils % % Neutrophils # (1.6-8.9) K/mcL Lymphocytes # (0.6-4.6) K/mcL Monocytes # (0.0-1.3) K/mcL Eosinophils # (0.0-0.6) K/mcL Basophils # (0.0-0.2) K/mcL Sodium 141 (136-145) mEq/L Potassium 3.6 (3.5-5.1) mEq/L Chloride 103 (98-107) mEq/L Carbon Dioxide 18 L (23-29) mEq/L BUN 23 H (6-20) mg/dL Creatinine 1.38 H (0.70-1.30) mg/dL Est GFR ( Amer) > 60 (> 60) Est GFR (Non-Af Amer) 54 L (> 60) BUN/Creatinine Ratio 17 (6-26) Glucose 126 H (70-105) mg/dL Calculated Osmolality 297 (280-300) Calcium 8.9 (8.6-10.3) mg/dL Total Bilirubin 1.6 H (0.3-1.0) mg/dL AST 102 H (13-39) Units/L ALT 44 (7-52) Units/L Alkaline Phosphatase 56 (34-104) Units/L Troponin I < 0.03 (< 0.04) ng/mL Serum Total Protein 7.2 (6.4-8.9) g/dL Albumin 4.4 (3.5-5.7) g/dL Globulin 2.8 (2.4-3.5) g/dL Albumin/Globulin Ratio 1.6 (1.1-2.2) Lipase 59 (11-82) Units/L Urine Color (Yellow) Urine Clarity (Clear) Urine pH (5.0-8.0) pH Units Ur Specific [place] (1.010-1.025) Urine Protein (Neg-Trace) mg/dL Urine Glucose (UA) (Normal) mg/dL Urine Ketones (Negative) mg/dL Urine Blood (Negative) Urine Nitrite (Negative) Urine Bilirubin (Negative) Urine Urobilinogen (Normal) mg/dL Ur Leukocyte Esterase (Negative) Urine Microscopic RBC (0-3) per hpf Urine Microscopic WBC (0-3) per hpf Ur Squamous Epith Cells (None-Few) per lpf Urine Bacteria (None-Few) per hpf Hyaline Casts (None-Few) per lpf Ur Culture Indicated? (NO) Salicylates < 2.5 L (15.0-30.0) mg/dL Urine Opiates Screen (Xkullk=752) ng/mL Acetaminophen < 10 L (10-20) mcg/mL Ur Barbiturates Screen (Rnnzwx=384) ng/mL Ur Phencyclidine Scrn (Cutoff=25) ng/mL Ur Amphetamines Screen (Uoabfg=3999) ng/mL U Benzodiazepines Scrn (Tjgrhz=443) ng/mL Urine Cocaine Screen (Cutoff= 300) ng/mL U Marijuana (THC) Screen (Cutoff = 50) ng/mL Ur Drug Screen Interp Ethyl Alcohol 344 H 233 H 11 H (Less than 10) mg/dL
[2018-02-25] MEDS ORDERED: Naloxone 0.4 MG/ML INJ IVP PRN (13:06)
[2018-02-25 13:24] LABS: Magnesium 1.9 mg/dL (1.6-2.6); Phosphorous 1.9 mg/dL (2.7-4.5)
[2018-02-25] MEDS: 0.9 % Sodium Chloride 1,000 ML IVC SCH ×2 (13:56→23:52)
--- NOTE | 2018-02-25 15:59 | Internal Med History&Physical ---
Date of Encounter: 02/26/18 Time of Encounter: 16:00 Internal Medicine - H&P: HPI Chief complaint: Suicidal ideation, alcohol abuse History of present illness: Mr. Beckett is a 52 year old male with pmh of alcohol abuse and suicidal ideation presenting with complaints of feeling lonely at home, being bored and wanting to kill himself. Apparently he told his relatives over the phone that he wanted to hurt himself after not picking up their calls for a couple of days , and then they called EMS to come take him to the hospital. He admits to suicidal ideation on this admission and says he has guns at home. Per ER, he was beong followed by psych and was supposed to go to the psych unit but began having tremors and tachycardia and is being admitted to the medicine service for alcohol withdrawal. he admits to drinking vodka and beer at home. BAL on arrival was 344. Past Med Surg Social Fam HX - Past Medical History Medical history: hyperlipidemia, hypertension Psychiatric history: no psych history - Past Surgical History Surgical History: no surgical history - Social History Smoking Status: Never smoker Smokeless Tobacco Status: No Alcohol use: occasionally Drug use: none - Family History Mother Adopted: Yes Internal Medicine - H&P: Meds Atenolol [Tenormin] 25 mg PO DAILY 02/25/18 [History] Lisinopril [Zestril] 10 mg PO DAILY 02/25/18 [History] NIFEdipine [Nifedipine ER] 30 mg PO DAILY 02/25/18 [History] Simvastatin [Zocor] 40 mg PO DAILY 02/25/18 [History] 3 Allergy/AdvReac Type Severity Reaction Status Date / Time No Known Allergies Allergy Verified 01/27/17 10:08 All Systems PM: A 10-system review of systems was performed and is negative for pertinent findings except as documented above in the HPI. - Constitutional Constitutional: no chills, no fever(s), no night sweats - EENT Eyes: no change in vision, no discharge, no pain, no photophobia Ears: no ear discharge, no ear pain, no tinnitus Nose, mouth and throat: no dysphagia, no nasal discharge, no neck pain, no sore throat - Cardiovascular Cardiovascular ROS IM: no chest pain, no diaphoresis, no dyspnea, no lightheadedness, no palpitations, no syncope - Respiratory Respiratory: no cough, no dyspnea, no wheezing, no excessive phlegm production - Gastrointestinal Gastrointestinal: no abdominal pain, no diarrhea, no hematemesis, no hematochezia, no melena, no nausea, no vomiting - Musculoskeletal Musculoskeletal ROS IM: no numbness, no tingling - Integumentary Integumentary IM: no rash, no unusual bruising - Neurological Neurological ROS: tremor(s), no confusion, no convulsions, no focal weakness, no numbness, no tingling - Psychiatric Psychiatric: hopelessness, suicidal ideation - Hematologic/Lymphatic Hematologic/Lymphatic: no easy bruising - Constitutional Vitals: Temp Pulse Resp BP Pulse Ox 97.8 F 76 18 121/83 98 02/25/18 14:37 02/25/18 14:37 02/25/18 14:37 02/25/18 14:37 02/25/18 14:37 - Head Head exam: Present: atraumatic, normocephalic - Eye Eye exam: Present: PERRL, conjuntiva pink, sclera anicteric Pupils: Present: PERRL - Neck Neck exam general surgery: Present: supple, trachea midline. Absent: lymphadenopathy - Respiratory Respiratory exam: Present: CTAB. Absent: accessory muscle use, rales, rhonchi, wheezes - Cardiovascular Cardiovascular exam: Present: RRR, +S1, +S2. Absent: diastolic murmur, gallop, rubs, systolic murmur - GI/Abdominal GI/Abdominal exam: Present: normal bowel sounds, soft, no peritoneal signs. Absent: distended, tenderness - Extremities Exam Extremities exam: Present: warm, radial pulses palpable and symmetrical. Absent : calf tenderness, cyanotic, pedal edema - Neurological Exam Neurological exam: Present: CN II-XII intact, oriented X3, no focal deficits. Absent: pronater drift, facial droop, speech deficit Additional comments: tremors in hands outstretched - Skin Skin exam: Present: dry, intact Internal Med - H&P Results - Labs CBC & Chem 7: 02/26/18 05:56 02/26/18 05:56 - Assessment and plan (1) Alcohol withdrawal Current Visit: Yes Status: Acute Assessment and plan: Acute alcohol withdrawal with tachycardia and tremors. Start on CIWA protocol with Iv fluids, thiamine , folic acid and ativan PRN. Continue supportive management Qualifiers: Complication of substance-induced condition: uncomplicated Qualified Code(s ): F10.230 - Alcohol dependence with withdrawal, uncomplicated (2) Suicidal ideation Current Visit: Yes Status: Acute Assessment and plan: Per ER, seen by psych in the ER and will likely be admitted to 1A once alcohol withdrawal resolves (3) Hypertension Current Visit: Yes Status: Acute Assessment and plan: Continue lisinopril, nifedipine and atenolol Qualifiers: Qualified Code(s): I10 - Essential (primary) hypertension (4) Dyslipidemia Current Visit: Yes Status: Acute Assessment and plan: Continue simvastatin - Time Spent With Patient Total time spent is greater than 50% in coordination of care (as documented) at patient's floor/unit and/or counseling patient:
[2018-02-25] MEDS: *HR* LORazepam 2 MG/ML VIAL IVP PRN ×2 (17:28→23:08)
[2018-02-25] MEDS ORDERED: Thiamine (B-1) 100 MG, Folic Acid 1 MG, MVI, adult with vitamin K 10 ML in 0.9 % Sodi... IVPB SCH (18:00)
[2018-02-26 06:27] LABS: Basophils # 0.1 K/mcL (0.0-0.2); Basophils % 0.8 %; Eosinophils # 0.1 K/mcL (0.0-0.6); Eosinophils % 1.4 %; Hematocrit 34.7 % (37.5-50.1); Immature Granulocytes % 0.2 % (0-4); Lymphocytes % 15.2 %; Mean Corpuscular HGB Conc 32.9 g/dL (31.6-35.5); Mean Corpuscular Hemoglobin 27.7 pg (28.0-33.3); Mean Corpuscular Volume 84.2 fL (83.0-100.0); Mean Platelet Volume 9.9 fL (9.4-12.4); Monocytes # 0.4 K/mcL (0.0-1.3); Monocytes % 5.9 %; Platelet Count 215 K/mcL (140-400); Red Blood Count 4.12 M/mcL (4.19-5.50); Red Cell Distribution Width 15.9 % (11.5-14.5); Segmented Neutrophils % 76.5 %
[2018-02-26 06:33] LABS: Hemoglobin 11.4 g/dL (12.9-16.9)
[2018-02-26 06:47] LABS: BUN/Creatinine Ratio 12 (6-26); Blood Urea Nitrogen 10 mg/dL (6-20); Calcium 8.7 mg/dL (8.6-10.3); Carbon Dioxide 25 mEq/L (23-29); Chloride 110 mEq/L (98-107); Glucose 111 mg/dL (70-105); Magnesium 1.7 mg/dL (1.6-2.6); Osmolality,Calculated 294 (280-300); Phosphorous 2.6 mg/dL (2.7-4.5); Potassium 3.7 mEq/L (3.5-5.1); Sodium 142 mEq/L (136-145); eGFR For African Americans > 60 (> 60); eGFR For Non-African Americans > 60 (> 60)
[2018-02-26] MEDS ORDERED: Vitamin B Complex/Vit C/Vit E 1 EACH TABLET PO SCH (09:00)
[2018-02-26] MEDS ORDERED: Folic Acid 1 MG TABLET PO SCH (09:00)
[2018-02-26] MEDS ORDERED: Thiamine (B-1) 100 MG TABLET PO SCH (09:00)
--- NOTE | 2018-02-26 09:58 | Electrocardiograph Report ---
[place] [employer] Test Date: 2018-02-24 Pat Name: Julio Beckett Department: 104 Room: 3B34 Gender: M [employer] Architect: KOMAL : 1965 Requested By: Storm Pastor Order Number: [id number] Reading MD: Brijesh James Measurements Intervals [place] Rate: 96 P: 52 MO: 142 QRS: 25 QRSD: 101 T: -69 QT: 357 QTc: 411 Interpretive Statements SINUS RHYTHM NONSPECIFIC ST & T-WAVE ABNORMALITY Electronically Signed On 02-26-2018 9:56:35 EDT by Brijesh James
[2018-02-26] MEDS: NIFEdipine XL (24 HR) 30 MG TAB.ER.24 PO SCH (10:51)
--- NOTE | 2018-02-26 11:15 | Consult Note ---
Date of Encounter: 02/26/18 Time of Encounter: 11:09 Assessment & Recommendation (1) Major depress dis, severe Current visit: Yes Status: Acute Assessment & Recommendation: Recommend inpatient admission once medically clear for management of depression and SI. Client has many risk factors that are heightened with recent heavy alcohol use. (2) Alcohol dependence Current visit: Yes Status: Acute Assessment & Recommendation: Continue withdrawal protocols. Qualifiers: Substance use status: uncomplicated Qualified Code(s): F10.20 - Alcohol dependence, uncomplicated History of Present Illness Requesting Physician: Arlene Burger Reason for consult: SI History of present illness: Mr. Beckett is a 52 year old male who was admitted secondary to SI and Etoh intoxication. BAL 334. Having anxiety, tremors, and tachycardia so moved to medical floor. On eval today client states he has been having SI off and on. No intent or plan. No prior attempts or hospitalizations. No outpatient linkage or treatment. No recreational drugs but heavy alcohol use. Client denies prior AOD treatment. States alcohol is worsening his mood. However, minimizes how much he is drinking and minimizes how easy it will be for him to stop. Definitely has risk factors. Lives alone. Never , no children. Extended family lives in [place]. Adopted. Retired in July and trying to adjust. Would recommend he be admitted for management of depression and outpatient referrals for mental health care and substance abuse treatment. Client is reluctant but agreeable. CC: Arlene Burger Past Med Surg Social Fam HX - Past Medical History Medical history: hyperlipidemia, hypertension - Past Psychiatric History Psychiatric history: Reports: depression Family psychiatric history: Unknown Family History of Suicide: Unknown - Past Surgical History Surgical History: no surgical history - Social History Smoking Status: Never smoker Smokeless Tobacco Status: No Alcohol use: occasionally Drug use: none - Family History Mother Adopted: Yes Medications & Allergies Atenolol [Tenormin] 25 mg PO DAILY 02/25/18 [History] Lisinopril [Zestril] 10 mg PO DAILY 02/25/18 [History] NIFEdipine [Nifedipine ER] 30 mg PO DAILY 02/25/18 [History] Simvastatin [Zocor] 40 mg PO DAILY 02/25/18 [History] 3 Allergy/AdvReac Type Severity Reaction Status Date / Time No Known Allergies Allergy Verified 01/27/17 10:08 Review of Systems Constitutional: Denies: fever, chills, weakness, weight change Eyes: Denies: eye pain, vision change Ears, Nose, Throat: Denies: ear pain, throat pain, dental pain, hearing loss, congestion Cardiovascular: Denies: chest pain, palpitations, dyspnea on exertion Respiratory: Denies: cough, dyspnea, wheezes Gastrointestinal: Denies: abdominal pain, nausea, vomiting, diarrhea, constipation Genitourinary male: Denies: urgency, dysuria, frequency, genital lesions Musculoskeletal: Denies: joint swelling, joint pain Integumentary: Denies: rash, lesions, pruritus Neurological: Denies: headache, weakness, numbness, memory loss Endocrine: Denies: fatigue, heat or cold intolerance Hematologic/Lymphatic: Denies: easy bruising, lymphadenopathy Allergic/Immunologic: Denies: urticaria, itchy eyes Psychiatry Exam - Constitutional Vitals: Temp Pulse Resp BP Pulse Ox 97.4 F L 66 18 156/101 100 02/26/18 07:19 02/26/18 07:19 02/26/18 07:19 02/26/18 07:19 02/26/18 07:19 General appearance: age & developmentally appropriate, well-groomed, well- nourished - Musculoskeletal Gait: normal Station: relaxed Strength & Tone: normal for patient - Psychiatric Patient Orientation: Yes Person, Yes Time, Yes Place Level of alertness: Alert Behavior: calm, cooperative Psychomotor activity: Normal Eye Contact: Maintains Eye Contact Mood Description: Depressed Affect description: congruent with mood Speech Volume: Normal Speech pattern: normal rate, normal rhythm, normal tone, fluent, spontaneous Language & Vocabulary: consistent with education Thought Process: Linear Thought Content: Yes Suicidal ideation, No Homicidal ideation, No Overt delusions Perceptual Disturbances: No Auditory hallucinations, No Visual hallucinations Attention Span Ability: Capable of Focused Attention Memory Description: Grossly Intact Patient Reliability: Questionable Historian Fund of knowledge: Yes abstraction ability, Yes aware of current events Intelligence Estimate: Below Average Judgment: Limited Insight: Partial Results - Labs Labs: Laboratory Last Values WBC 6.6 K/mcL (4.3-11.1) 02/26/18 05:56 RBC 4.12 M/mcL (4.19-5.50) L 02/26/18 05:56 Hgb 11.4 g/dL (12.9-16.9) L D 02/26/18 05:56 Hct 34.7 % (37.5-50.1) L 02/26/18 05:56 MCV 84.2 fL (83.0-100.0) 02/26/18 05:56 MCH 27.7 pg (28.0-33.3) L 02/26/18 05:56 MCHC 32.9 g/dL (31.6-35.5) 02/26/18 05:56 RDW 15.9 % (11.5-14.5) H 02/26/18 05:56 Plt Count 215 K/mcL (140-400) 02/26/18 05:56 MPV 9.9 fL (9.4-12.4) 02/26/18 05:56 Immature Gran % 0.2 % (0-4) 02/26/18 05:56 Seg Neutrophils % 76.5 % 02/26/18 05:56 Lymphocytes % 15.2 % 02/26/18 05:56 Monocytes % 5.9 % 02/26/18 05:56 Eosinophils % 1.4 % 02/26/18 05:56 Basophils % 0.8 % 02/26/18 05:56 Neutrophils # 5.0 K/mcL (1.6-8.9) 02/26/18 05:56 Lymphocytes # 1.0 K/mcL (0.6-4.6) 02/26/18 05:56 Monocytes # 0.4 K/mcL (0.0-1.3) 02/26/18 05:56 Eosinophils # 0.1 K/mcL (0.0-0.6) 02/26/18 05:56 Basophils # 0.1 K/mcL (0.0-0.2) 02/26/18 05:56 Sodium 142 mEq/L (136-145) 02/26/18 05:56 Potassium 3.7 mEq/L (3.5-5.1) 02/26/18 05:56 Chloride 110 mEq/L (98-107) H 02/26/18 05:56 Carbon Dioxide 25 mEq/L (23-29) 02/26/18 05:56 BUN 10 mg/dL (6-20) 02/26/18 05:56 Creatinine 0.84 mg/dL (0.70-1.30) 02/26/18 05:56 Est GFR ( Amer) > 60 (> 60) 02/26/18 05:56 Est GFR (Non-Af Amer) > 60 (> 60) 02/26/18 05:56 BUN/Creatinine Ratio 12 (6-26) 02/26/18 05:56 Glucose 111 mg/dL (70-105) H 02/26/18 05:56 Calculated Osmolality 294 (280-300) 02/26/18 05:56 Calcium 8.7 mg/dL (8.6-10.3) 02/26/18 05:56 Phosphorus 2.6 mg/dL (2.7-4.5) L 02/26/18 05:56 Magnesium 1.7 mg/dL (1.6-2.6) 02/26/18 05:56 Total Bilirubin 1.6 mg/dL (0.3-1.0) H 02/24/18 20:21 AST 102 Units/L (13-39) H 02/24/18 20:21 ALT 44 Units/L (7-52) 02/24/18 20:21 Alkaline Phosphatase 56 Units/L (34-104) 02/24/18 20:21 Troponin I < 0.03 ng/mL (< 0.04) 02/24/18 20:21 Serum Total Protein 7.2 g/dL (6.4-8.9) 02/24/18 20:21 Albumin 4.4 g/dL (3.5-5.7) 02/24/18 20:21 Globulin 2.8 g/dL (2.4-3.5) 02/24/18 20:21 Albumin/Globulin Ratio 1.6 (1.1-2.2) 02/24/18 20:21 Lipase 59 Units/L (11-82) 02/24/18 20:21 Urine Color Yellow (Yellow) 02/24/18 19:57 Urine Clarity Cloudy (Clear) A 02/24/18 19:57 Urine pH 6.0 pH Units (5.0-8.0) 02/24/18 19:57 Ur Specific [place] 1.019 (1.010-1.025) 02/24/18 19:57 Urine Protein 30 mg/dL (Neg-Trace) H 02/24/18 19:57 Urine Glucose (UA) Normal mg/dL (Normal) 02/24/18 19:57 Urine Ketones Trace mg/dL (Negative) H 02/24/18 19:57 Urine Blood Moderate (Negative) H 02/24/18 19:57 Urine Nitrite Negative (Negative) 02/24/18 19:57 Urine Bilirubin Negative (Negative) 02/24/18 19:57 Urine Urobilinogen Normal mg/dL (Normal) 02/24/18 19:57 Ur Leukocyte Esterase Negative (Negative) 02/24/18 19:57 Urine Microscopic RBC 0-3 per hpf (0-3) 02/24/18 19:57 Urine Microscopic WBC 0-3 per hpf (0-3) 02/24/18 19:57 Ur Squamous Epith Cells Many per lpf (None-Few) H 02/24/18 19:57 Urine Bacteria None Seen per hpf (None-Few) 02/24/18 19:57 Hyaline Casts Moderate per lpf (None-Few) H 02/24/18 19:57 Ur Culture Indicated? NO (NO) 02/24/18 19:57 Salicylates < 2.5 mg/dL (15.0-30.0) L 02/24/18 20:21 Urine Opiates Screen Negative ng/mL (Tetpxx=268) 02/24/18 19:57 Acetaminophen < 10 mcg/mL (10-20) L 02/24/18 20:21 Ur Barbiturates Screen Negative ng/mL (Amsqbz=220) 02/24/18 19:57 Ur Phencyclidine Scrn Negative ng/mL (Cutoff=25) 02/24/18 19:57 Ur Amphetamines Screen Negative ng/mL (Dvkrbt=0070) 02/24/18 19:57 U Benzodiazepines Scrn Negative ng/mL (Vbyhfg=915) 02/24/18 19:57 Urine Cocaine Screen Negative ng/mL (Cutoff= 300) 02/24/18 19:57 U Marijuana (THC) Screen Negative ng/mL (Cutoff = 50) 02/24/18 19:57 Ur Drug Screen Interp See Below 02/24/18 19:57 Ethyl Alcohol 11 mg/dL (Less than 10) H 02/25/18 10:58 Consult Discharge Plan - Plan Referrals: NONE,PCP [Primary Care Provider] -
--- NOTE | 2018-02-26 15:32 | Internal Med Progress Note ---
Date of Encounter: 02/26/18 Time of Encounter: 09:30 - Assessment and plan (1) Suicidal ideation Current Visit: Yes Status: Acute Assessment and plan: Pt reportedly told family that he was suicidal. He has been admitted for SI and for alcohol withdrawl. Pt will be admitted to 1A after medically cleared. Sitter at bedside. (2) Alcohol withdrawal Current Visit: Yes Status: Acute Assessment and plan: Pt admitted for acute alcohol withdrawl. In the ED he began having tremors and tachycardia. No tremors noted this a.m. and pt denies withdrawl symptoms Patient has utilized CIWA protocol one time, not since midnight though. If patient remains stable, he will be medically cleared and can go to 1A tomorrow. Qualifiers: Complication of substance-induced condition: uncomplicated Qualified Code(s ): F10.230 - Alcohol dependence with withdrawal, uncomplicated (3) Hypertension Current Visit: Yes Status: Acute Assessment and plan: Continue lisinopril, nifedipine and atenolol Monitor blood pressures closely. Qualifiers: Qualified Code(s): I10 - Essential (primary) hypertension (4) Dyslipidemia Current Visit: Yes Status: Acute Assessment and plan: Continue home dose of statin. - Time Spent With Patient Total time spent is greater than 50% in coordination of care (as documented) at patient's floor/unit and/or counseling patient: less than 15 minutes - Subjective Interval history: Pt was seen and assessed at bedside at 0930 a.m. Pt is alert, awake, pleasant, answers questions appropriately. He denies withdrawl symptoms, no tremors noted. Sitter at bedside. Pt denies headache, blurred vision, nausea, vomiting, or diarrhea, no peripheral edema. Pt is aware of pending mental health admission , all questions answered. - Constitutional Vitals: Temp Pulse Resp BP Pulse Ox 98.6 F 66 16 142/95 99 02/26/18 12:33 02/26/18 12:33 02/26/18 12:33 02/26/18 12:33 02/26/18 12:33 General appearance: Present: cooperative, pleasant, no acute distress, answers questions appropriately - Head Head exam: Present: atraumatic, normal inspection, normocephalic - Eye Eye exam: Present: normal appearance, conjuntiva pink, sclera anicteric - Neck Neck exam general surgery: Present: supple, trachea midline. Absent: lymphadenopathy, tenderness - Respiratory Respiratory exam: Present: CTAB. Absent: accessory muscle use, rales, respiratory distress, rhonchi, wheezes - Cardiovascular Cardiovascular exam: Present: RRR, +S1, +S2. Absent: diastolic murmur, gallop, rubs, systolic murmur - GI/Abdominal GI/Abdominal exam: Present: normal bowel sounds, soft. Absent: distended, hepatomegaly, tenderness - Extremities Exam Extremities exam: Present: normal capillary refill, normal inspection, warm, radial pulses palpable and symmetrical. Absent: calf tenderness, cyanotic, pedal edema, tenderness - Neurological Exam Neurological exam: Present: alert, oriented X3, no focal deficits. Absent: facial droop, speech deficit - Skin Skin exam: Present: dry, intact, normal color, warm. Absent: rash Internal Medicine: Result - Labs CBC & Chem 7: 02/26/18 05:56 02/26/18 05:56 Labs: Short CBC 02/26/18 Range/Units 05:56 WBC 6.6 (4.3-11.1) K/mcL Hgb 11.4 L D (12.9-16.9) g/dL Hct 34.7 L (37.5-50.1) % Plt Count 215 (140-400) K/mcL Neutrophils # 5.0 (1.6-8.9) K/mcL BMP 02/26/18 05:56 Sodium 142 Potassium 3.7 Chloride 110 H Carbon Dioxide 25 BUN 10 Creatinine 0.84 Glucose 111 H Calcium 8.7 Consult Discharge Plan - Plan Referrals: NONE,PCP [Primary Care Provider] -
[2018-02-26] MEDS ORDERED: Thiamine (B-1) 100 MG, Folic Acid 1 MG, MVI, adult with vitamin K 10 ML in 0.9 % Sodi... IVPB SCH (18:00)
[2018-02-27 08:04] VITALS: BP 138/81
[2018-02-27] MEDS: NIFEdipine XL (24 HR) 30 MG TAB.ER.24 PO SCH (10:07)
--- NOTE | 2018-02-27 11:15 | Discharge Summary ---
Date of Encounter: 02/27/18 Time of Encounter: 09:05 - Discharge Diagnosis (1) Suicidal ideation Priority: Primary Status: Acute Assessment and Plan: He has been admitted for SI and for alcohol withdrawl. Pt medically cleared and is ready to go to 1A Sitter at bedside. (2) Alcohol withdrawal Priority: Secondary Status: Acute Assessment and Plan: Pt admitted for acute alcohol withdrawl. No tremors noted this a.m. and pt denies withdrawl symptoms. Denies chest pain, diaphoresis, n/v, auditory or visual hallucinationsl Patient has utilized CIWA protocol once on night of admission. Medically cleared to go to 1A for mental health admission and treatment. Qualifiers: Complication of substance-induced condition: uncomplicated Qualified Code(s ): F10.230 - Alcohol dependence with withdrawal, uncomplicated (3) Hypertension Priority: Secondary Status: Chronic Assessment and Plan: Continue lisinopril, nifedipine and atenolol Monitor blood pressures closely. Qualifiers: Hypertension type: essential hypertension Qualified Code(s): I10 - Essential (primary) hypertension (4) Dyslipidemia Priority: Secondary Status: Chronic Assessment and Plan: Continue home medication Hospital course: Mr. Beckett is a 52 year old male with PMH of HLD and HTN, ETOH abuse. Pt presented to the ED after telling family that he was suicidal. He was admitted for ETOH withdrawl and required CIWA protocol medication one time. He is stable and vitals and labs are WNL. Pt is being admitted to mental health unit for evaluation and treatment of SI. Discharge discussed with: patient - Time Spent with Patient Total time spent providing and/or coordinating discharge services: Less than 30 minutes - Discharge Medications Home Medications: Atenolol [Tenormin] 25 mg PO DAILY 02/25/18 [History] Lisinopril [Zestril] 10 mg PO DAILY 02/25/18 [History] NIFEdipine [Nifedipine ER] 30 mg PO DAILY 02/25/18 [History] Simvastatin [Zocor] 40 mg PO DAILY 02/25/18 [History] Allergies/Adverse Reactions: 3 Allergy/AdvReac Type Severity Reaction Status Date / Time No Known Allergies Allergy Verified 01/27/17 10:08 Date of admission: 02/25/18 12:50 Primary care physician: PCP NONE Consults: 02/25/18 13:09 Consult to Inspector Process [CONS] Routine Reason for SW Consult: alcohol abuse 02/25/18 15:47 Consult to Psychiatry [CONS] Routine Consulting Provider: Psychiatry Linda Reason consult: Sitter/1:1 Other reason and/or additional details: suicidal ideation. Pt has been admitted for ETOH withdrawl. Pt in 3B34. Time Notified: 07:29 Call Completed: Yes Discharging clinician: Windy Cavazos Anticipated date of discharge: 02/27/18 - Constitutional Vitals: Temp Pulse Resp BP Pulse Ox 98.2 F 84 15 138/81 99 02/27/18 08:00 02/27/18 08:00 02/27/18 08:00 02/27/18 08:00 02/27/18 08:00 General appearance: Present: cooperative, pleasant, no acute distress, answers questions appropriately - Head Head exam: Present: atraumatic, normal inspection, normocephalic - Eye Eye exam: Present: normal appearance, conjuntiva pink, sclera anicteric - Neck Neck exam general surgery: Present: supple, trachea midline. Absent: lymphadenopathy, tenderness - Respiratory Respiratory exam: Present: CTAB. Absent: accessory muscle use, rales, respiratory distress, rhonchi, wheezes - Cardiovascular Cardiovascular exam: Present: RRR, +S1, +S2. Absent: diastolic murmur, gallop, rubs, systolic murmur - GI/Abdominal GI/Abdominal exam: Present: normal bowel sounds, soft. Absent: distended, hepatomegaly, tenderness - Extremities Exam Extremities exam: Present: normal capillary refill, normal inspection, warm, radial pulses palpable and symmetrical. Absent: calf tenderness, cyanotic, pedal edema, tenderness - Neurological Exam Neurological exam: Present: alert, oriented X3, no focal deficits. Absent: facial droop, speech deficit - Skin Skin exam: Present: dry, intact, normal color, warm. Absent: rash - Patient Status Disposition: Transfer Psychiatric Hosp Condition: Good Overall status at discharge: patient is back to baseline - Discharge Instructions Follow Up With: NONE,PCP [Primary Care Provider] - - Diet and Activity Activity: increase activity as tolerated Diet: advance to your usual diet
[2018-03-01] MEDS ORDERED: Folic Acid 1 MG TABLET PO SCH (09:00)
[2018-03-01] MEDS ORDERED: Vitamin B Complex/Vit C/Vit E 1 EACH TABLET PO SCH (09:00)
[2018-03-01] MEDS ORDERED: Thiamine (B-1) 100 MG TABLET PO SCH (09:00)
== END 2018-02-27 14:11 ==
LOC: EMEROO 19:21 → 3BNU 19:21
PROVIDERS: ADMIT Student in an Organized Health Care Education/Training Program; ATTEND Student in an Organized Health Care Education/Training Program

== ENCOUNTER 2018-02-27 14:19 | Inpatient (IN) ==
[2018-02-27] MEDS ORDERED: Haloperidol Lactate 5 MG/ML VIAL IM PRN (16:39)
[2018-02-27] MEDS ORDERED: Acetaminophen 325 MG TABLET PO PRN (16:39)
[2018-02-27] MEDS ORDERED: *HR* LORazepam 1 MG TABLET PO PRN (16:39)
[2018-02-27] MEDS ORDERED: Mag Hydrox/Al Hydrox/Simeth 30 ML UDC PO PRN (16:39)
[2018-02-27] MEDS ORDERED: MOM Conc 10 ML UD.LIQ PO PRN (16:39)
[2018-02-27] MEDS ORDERED: hydrOXYzine pamoate 25 MG CAPSULE PO PRN (16:39)
[2018-02-27] MEDS ORDERED: *HR* LORazepam 2 MG/ML VIAL IM PRN (16:39)
[2018-02-27] MEDS: traZODone 50 MG TABLET PO PRN (21:34)
[2018-02-28] MEDS: NIFEdipine XL (24 HR) 30 MG TAB.ER.24 PO SCH (08:32)
--- NOTE | 2018-02-28 13:17 | Psychiatry History & Physical ---
Date of Encounter: 02/28/18 Time of Encounter: 13:00 History of Present Illness Patient Stated Chief Complaint: I remember, I said, I don't know if I wasn to live much longer Medicare Admission Attestation: For traditional Medicare patients the provided hospital inpatient services are reasonable and necessary and in the case of services not specified as inpatient -only under 42 CFR 419.22 (n), that they are appropriately provided as inpatient services in accordance 42 CFR 412.3. For Critical Access Hospital the patient may reasonably be expected to be discharged or transferred to a hospital within 96 hours after admission to the Critical Access Hospital. Admitted From: Intrahospital Transfer Plans for Post Hospital Care: Home History of Present Illness: Mr. Beckett is a 52 year old male The patient is a 52-year-old single -Q[place] male who was transferred from a hospital bed on the hospital floor after going through significant alcohol withdrawal. Chief complaint: I remember I talked to the social media marketing analyst. I remember I talked to by relative and I said I do not notify 1 to live much longer. History of present illness: The patient has 4 guns in his home. These include 1 -22, 1 pistol, 1 410, 1-12-gauge and 1-22 rifle. To the these belonged to him and to where handed down from his dad. The patient keeps them loaded and available. This is because he is worried about a break-in [place] The patient was admitted to this unit on March 09 but had presented February 25 with intoxication. He also had suicidal ideation and was initially diagnosed with depression. The patient has no formal psychiatric history there are no other reported suicide attempts. His primary care physician Dr. Hatch had only treated him for blood pressure and cholesterol. The patient had never gone to substance abuse treatment other than the event listed below. 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 Although he was not required to at least never been to AA or other formalized treatments. On the night in question the patient reports that he started drinking shots of vodka. He purchases vodka on [employer]. He reports that he might have had too many shots and called his family member. The patient minimizes any problems with alcohol but he had a high blood alcohol on admission. He denies that he had been told to stop drinking her head drinking related problems. Past medical history. Surgeries hernia at age 18, illnesses: Hypertension high cholesterol On April [id number] the patient was evaluated for a subdural hematoma rate he said this occurred when he fell out of bed he been seen by his doctor but relatives were still concerned and so he went to [facility] and later to [facility] was urged: Intervention but he had a 9 mm right frontoparietal subdural hematoma. Allergies NKDA. Medications are as listed. Family history: The patient was adopted and while he knows little of his biological family did play with some cousins but none has gone on to develop alcohol problems suicide drugs or psychiatric illness to his knowledge. Social history the patient graduated high school. He worked at [employer]. 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 He still has a CDL. He has not attended mosque. Review of systems: The patient says his mood is good and he has good self-esteem , interest some guilt over the recent a period no major somatic concerns okay energy okay concentration diminished appetite diminished sleep and no ongoing suicidal ideation. The patient reports that he is always had trouble with memory tests in confrontational testing. Review of systems is otherwise negative on the patient noted no major constitutional problems. He is trying to be active cutting the grass but gets very little exercise. There is no other history of suicidal ideation. No one else lives in the home Past Med Surg Social Fam HX - Past Medical History Source: patient Medical history: hyperlipidemia, hypertension - Past Psychiatric History Psychiatric history: Reports: other Family psychiatric history: No Family History of Suicide: None - Past Surgical History Surgical History: no surgical history, herniorrhaphy - Social History Smoking Status: Never smoker Smokeless Tobacco Status: No Alcohol use: occasionally Drug use: none Occupational status: retired Current living situation: Home - Independent Activity Level: Independent ambulation Recent Out of Country Travel Within the Last 8 Weeks: Yes Exposure or Possible Exposure to Illness During Travel: Yes - Family History Mother Adopted: Yes Medications & Allergies Atenolol [Tenormin] 25 mg PO DAILY 02/25/18 [History] Lisinopril [Zestril] 10 mg PO DAILY 02/25/18 [History] NIFEdipine [Nifedipine ER] 30 mg PO DAILY 02/25/18 [History] Simvastatin [Zocor] 40 mg PO DAILY 02/25/18 [History] 3 Allergy/AdvReac Type Severity Reaction Status Date / Time No Known Allergies Allergy Verified 01/27/17 10:08 Review of Systems Constitutional: Denies: fever, chills, weakness, weight change Eyes: Denies: eye pain, vision change Ears, Nose, Throat: Denies: ear pain, throat pain, dental pain, hearing loss, congestion Cardiovascular: Denies: chest pain, palpitations, dyspnea on exertion Respiratory: Denies: cough, dyspnea, wheezes Gastrointestinal: Denies: abdominal pain, nausea, vomiting, diarrhea, constipation Genitourinary male: Reports: urgency Musculoskeletal: Denies: joint swelling, joint pain Integumentary: Reports: rash Neurological: Reports: memory loss Psychiatric: Reports: suicidal ideation, change in appetite, memory loss Endocrine: Denies: fatigue, heat or cold intolerance Hematologic/Lymphatic: Denies: easy bruising, lymphadenopathy Allergic/Immunologic: Denies: urticaria, itchy eyes Exam - HEENT Head exam IM: Present: atraumatic Eye exam IM: Present: EOMI, normal appearance, PERRL ENT exam IM: Present: normal exam - Neurological Neurological exam: Present: CN II-XII intact - Respiratory Respiratory exam IM: Present: CTAB - GI/Abdominal GI/Abdominal exam IM: Present: normal bowel sounds, soft. Absent: tenderness - Extremities Extremities exam IM: Present: full ROM - Skin Skin exam IM: Present: dry, warm - Additional Information Additional Information: Mild nystagmus his mild amount tremor. He has attended. 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 He had short-term memory deficits on confrontational testing but appeared to have intact sequencing and abstraction - Constitutional Vitals: Temp Pulse Resp BP 98.3 F 79 20 137/105 02/28/18 09:00 02/28/18 09:00 02/28/18 09:00 02/28/18 09:00 General appearance: age & developmentally appropriate, well-groomed, well- nourished - Musculoskeletal Gait: normal Station: shaky Strength & Tone: normal for patient - Psychiatric Patient Orientation: Yes Person, Yes Time, Yes Place Level of alertness: Alert Behavior: calm, cooperative, anxious Psychomotor activity: Normal Eye Contact: Maintains Eye Contact Mood Description: Depressed Affect description: congruent with mood, full range Speech Volume: Normal Speech pattern: normal rate, normal rhythm, normal tone, fluent, spontaneous Language & Vocabulary: consistent with education Thought Process: Linear, Goal Oriented Thought Content: Yes Suicidal ideation, No Homicidal ideation, No Overt delusions Perceptual Disturbances: No Auditory hallucinations, No Visual hallucinations Attention Span Ability: Capable of Focused Attention Memory Description: Grossly Intact Patient Reliability: Reliable Historian Fund of knowledge: Yes abstraction ability, Yes average, Yes aware of current events Intelligence Estimate: Average Judgment: Limited Insight: Minimal Assessment and Plan (1) Other specified persistent mood disorders Current visit: Yes Status: Acute Plan: Admit inpatient for safety and stabilization, Close observation, Suicide Precautions per unit protocol, Encourage participation in unit milieu, Family/ Supportive other meeting Risks, benefits, side effects, alternatives discussed w/pt: Yes Patient agreeable to treatment: Yes Plans for Post Hospital Care: Home Estimated Length of Stay (Days): 5 (2) Alcohol dependence with uncomplicated withdrawal Current visit: Yes Status: Chronic Plan: Admit inpatient for safety and stabilization, Close observation, Group Therapy, Monitor sleep, Monitor appetite, Family/Supportive other meeting Risks, benefits, side effects, alternatives discussed w/pt: Yes Patient agreeable to treatment: Yes Plans for Post Hospital Care: Home (3) Unspecified symptoms and signs involving cognitive functions and awareness Current visit: Yes Status: Acute Plan: Encourage participation in unit milieu, Monitor appetite Risks, benefits , side effects, alternatives discussed w/pt: Yes Patient agreeable to treatment: Yes Plans for Post Hospital Care: Home (4) Traumatic subdural hemorrhage without loss of consciousness, sequela Current visit: Yes Status: Suspected Plan: Close observation, Secure weapons Risks, benefits, side effects, alternatives discussed w/pt: Yes Patient agreeable to treatment: Yes Plans for Post Hospital Care: Home (5) Suicidal ideation Current visit: No Status: Acute Plan: Admit inpatient for safety and stabilization, Close observation, Secure weapons Risks, benefits, side effects, alternatives discussed w/pt: Yes Patient agreeable to treatment: Yes Plans for Post Hospital Care: Home
[2018-02-28] MEDS: traZODone 50 MG TABLET PO PRN (21:32)
[2018-03-01] MEDS: NIFEdipine XL (24 HR) 30 MG TAB.ER.24 PO SCH (08:27)
--- NOTE | 2018-03-01 15:09 | Psychiatry Progress Note ---
Date of Encounter: 03/01/18 Time of Encounter: 15:00 Subjective Interval history: Patient is a 52-year-old -[place] man. He recognizes the need to give up drinking his chief complaint is I am ready to do which he say I should. History of present illness the patient started sertraline 50 mg in the morning he is not having significant trouble with side effects such as diarrhea or nausea. The patient is participating in the rivera milieu. He is espousing at a philosophy of abstinence he would like to keep the guns in his house is been cautioned about the dangers of depression and alcohol risk of suicide. And he was told to get the alcohol out of his house he. He thinks that this may R to be moved out Review of Systems Psychiatric: Reports: depression, suicidal ideation, change in appetite, memory loss Results - Vital Signs Vital Signs: Temp Pulse Resp BP 97.3 F L 76 20 150/109 03/01/18 09:00 03/01/18 09:00 03/01/18 09:00 03/01/18 09:00 Assessment and Plan (1) Other specified persistent mood disorders Current visit: Yes Status: Acute Risks, benefits, side effects, alternatives discussed w/pt: Yes Patient agreeable to treatment: Yes (2) Alcohol dependence with uncomplicated withdrawal Current visit: Yes Status: Chronic Risks, benefits, side effects, alternatives discussed w/pt: Yes Patient agreeable to treatment: Yes (3) Unspecified symptoms and signs involving cognitive functions and awareness Current visit: Yes Status: Acute Risks, benefits, side effects, alternatives discussed w/pt: Yes Patient agreeable to treatment: Yes (4) Traumatic subdural hemorrhage without loss of consciousness, sequela Current visit: Yes Status: Suspected Risks, benefits, side effects, alternatives discussed w/pt: Yes Patient agreeable to treatment: Yes (5) Suicidal ideation Current visit: No Status: Acute Risks, benefits, side effects, alternatives discussed w/pt: Yes Patient agreeable to treatment: Yes Consult Discharge Plan - Plan Referrals: Sita Fried [Outside] - 03/10/18 2:30 pm (The above appointment is with Alicia Garcia for [facility] health and substance abuse counseling. Please bring photo ID and insurance card.) Phong Chang [facility] Tang Crenshaw [Outside] - 03/08/18 1:15 pm (The above appointment is with Kassy Rangel CNP for psychiatric assessment and medication management. Please bring photo ID, and insurance card.) Winston Hatch, DO [Non-Partnered Physician] - (Per office policy, patient must call the office himself after discharge to arrange a follow-up appointment. ) Psychiatry Exam - Constitutional Vitals: Temp Pulse Resp BP 97.3 F L 76 20 150/109 03/01/18 09:00 03/01/18 09:00 03/01/18 09:00 03/01/18 09:00 General appearance: age & developmentally appropriate, well-groomed, well- nourished - Musculoskeletal Gait: normal Station: relaxed Strength & Tone: normal for patient - Psychiatric Patient Orientation: Yes Person, Yes Time, Yes Place Level of alertness: Alert Behavior: calm, cooperative Psychomotor activity: Normal Eye Contact: Maintains Eye Contact Mood Description: Depressed Affect description: congruent with mood, full range Speech Volume: Normal Speech pattern: normal rate, normal rhythm, normal tone, fluent, spontaneous Language & Vocabulary: consistent with education Thought Process: Linear, Goal Oriented Thought Content: Yes Suicidal ideation, No Homicidal ideation, No Overt delusions Perceptual Disturbances: No Auditory hallucinations, No Visual hallucinations Attention Span Ability: Capable of Focused Attention Memory Description: Grossly Intact Fund of knowledge: Yes abstraction ability, Yes aware of current events Intelligence Estimate: Average Judgment: Fair Insight: Partial
[2018-03-02] MEDS: NIFEdipine XL (24 HR) 30 MG TAB.ER.24 PO SCH (08:25)
--- NOTE | 2018-03-02 13:09 | Psychiatry Progress Note ---
Date of Encounter: 03/02/18 Time of Encounter: 13:15 Subjective Interval history: The patient is a 52-year-old -Irish male. Chief complaint I was scared by what she told me about the alcohol History of present illness. The patient agrees that he has had a problem with alcohol and was noted to have increased tolerance and alcohol toxicity with alcohol withdrawal. Now in retrospect recognizes this as a problem. He agrees to take the alcohol out of his house in fact his next-door neighbors watching his dog and his major that he get the beer and 5 Out of the house. A niece named Tala will also secure the guns and make sure they are out of the house and we will attempt confirm this. The patient was told that these are his guns but that the need to remain at secure location away from his home during this period of time. If prepared a letter for his primary care physician as well as other providers. The patient wanted to know more about his alcohol level. Review of Systems Psychiatric: Reports: depression, suicidal ideation, memory loss, difficulty concentrating Results - Vital Signs Vital Signs: Temp Pulse Resp BP 97.7 F 66 16 147/110 03/02/18 09:00 03/02/18 09:00 03/02/18 09:00 03/02/18 09:00 Assessment and Plan (1) Other specified persistent mood disorders Current visit: Yes Status: Acute Plan: Continue hospitalization, Close observation, Suicide Precautions per unit protocol, Encourage participation in unit milieu, Group Therapy, Monitor sleep, Monitor appetite, Secure weapons Risks, benefits, side effects, alternatives discussed w/pt: Yes Patient agreeable to treatment: Yes (2) Alcohol dependence with uncomplicated withdrawal Current visit: Yes Status: Chronic Plan: Continue hospitalization, Close observation, Suicide Precautions per unit protocol, Encourage participation in unit milieu Risks, benefits, side effects , alternatives discussed w/pt: Yes Patient agreeable to treatment: Yes (3) Unspecified symptoms and signs involving cognitive functions and awareness Current visit: Yes Status: Acute Plan: Group Therapy, Family/Supportive other meeting Risks, benefits, side effects, alternatives discussed w/pt: Yes Patient agreeable to treatment: Yes (4) Traumatic subdural hemorrhage without loss of consciousness, sequela Current visit: Yes Status: Suspected Plan: Family/Supportive other meeting Risks, benefits, side effects, alternatives discussed w/pt: Yes Patient agreeable to treatment: Yes (5) Suicidal ideation Current visit: No Status: Acute Plan: Continue hospitalization, Close observation, Secure weapons Risks, benefits, side effects, alternatives discussed w/pt: Yes Patient agreeable to treatment: Yes Consult Discharge Plan - Plan Referrals: Sita Fried [Outside] - 03/10/18 2:30 pm (The above appointment is with Alicia Garcia for [facility] health and substance abuse counseling. Please bring photo ID and insurance card.) [facility] Staffing Manager Flower [Outside] - 03/08/18 1:15 pm (The above appointment is with Kassy Rangel CNP for psychiatric assessment and medication management. Please bring photo ID, and insurance card.) Winston Hatch, DO [Non-Partnered Physician] - (Per office policy, patient must call the office himself after discharge to arrange a follow-up appointment. ) Psychiatry Exam - Constitutional Vitals: Temp Pulse Resp BP 97.7 F 66 16 147/110 03/02/18 09:00 03/02/18 09:00 03/02/18 09:00 03/02/18 09:00 General appearance: age & developmentally appropriate, well-groomed, well- nourished - Musculoskeletal Gait: normal Station: relaxed Strength & Tone: normal for patient - Psychiatric Patient Orientation: Yes Person, Yes Time, Yes Place Level of alertness: Alert Behavior: calm, cooperative, anxious Psychomotor activity: Normal Eye Contact: Maintains Eye Contact Mood Description: Anxious Affect description: congruent with mood, full range, anxious Speech Volume: Normal Speech pattern: normal rate, normal rhythm, normal tone, fluent, spontaneous Language & Vocabulary: consistent with education Thought Process: Linear, Goal Oriented Thought Content: No Suicidal ideation, No Homicidal ideation, No Overt delusions Perceptual Disturbances: No Auditory hallucinations, No Visual hallucinations Attention Span Ability: Capable of Focused Attention Memory Description: Grossly Intact, Immediate Impaired, Recent Intact, Remote Intact Patient Reliability: Reliable Historian Fund of knowledge: Yes average, Yes aware of current events Intelligence Estimate: Average Judgment: Fair Insight: Partial
[2018-03-02] MEDS: traZODone 50 MG TABLET PO PRN (21:51)
[2018-03-03] MEDS: NIFEdipine XL (24 HR) 30 MG TAB.ER.24 PO SCH (08:49)
[2018-03-03] MEDS ORDERED: NIFEdipine XL (24 HR) 30 MG TAB.ER.24 PO ONE (09:25)
[2018-03-03] MEDS: NIFEdipine XL (24 HR) 60 MG TAB.ER.24 PO SCH (09:27)
--- NOTE | 2018-03-03 12:01 | Internal Medicine Consult Note ---
Date of Encounter: 03/03/18 Time of Encounter: 12:01 - Assessment and plan (1) Uncontrolled hypertension Current Visit: Yes Status: Chronic Assessment and plan: Chronic Increase Nifedipine to 60mg daily Continue other home meds Discharge home when cleared by psychiatrist on current meds and follow up with PCP Medicine will sign off at this time - Time Spent With Patient Total time spent is greater than 50% in coordination of care (as documented) at patient's floor/unit and/or counseling patient: Internal Medicine - CN: HPI - Data of Consult Patient: new to practice Consult date: 03/03/18 Requesting Physician: Alen Cordero - Consult Narrative Reason for consult: Uncontrolled blood pressure History of present illness: Mr. Beckett is a 52 year old male admitted to psych for alcohol withdrawal. Hospital medicine consulted for uncontrolled hypertension. Patient is asymptomatic, ambulatory, in no form of distress. Review of system is unremarkable. Of note, patient is on Procardia 30 mg daily, and lisinopril 10 mg daily. Blood pressure. He is also on atenolol 25 mg twice a day. Blood pressure had been uncontrolled prior to admission. I recommended to increase Procardia to 60 mg. Repeat blood pressure done today within normal limits. Recommend to discharge patient on current blood pressure medications with an increase in nifedipine to 60 mg daily and follow up with PCP I discussed this with Dr. Hopkins. Medicine will sign off at this point, kindly reconsult when necessary. Past Med Surg Social Fam HX - Past Medical History Medical history: hyperlipidemia, hypertension Psychiatric history: other - Past Surgical History Surgical History: no surgical history, herniorrhaphy - Social History Smoking Status: Never smoker Smokeless Tobacco Status: No Alcohol use: occasionally Drug use: none - Family History Mother Adopted: Yes - Constitutional Constitutional: no chills, no fever(s) - Cardiovascular Cardiovascular ROS IM: no chest pain, no dyspnea on exertion, no edema - Respiratory Respiratory: no cough, no chest congestion - Neurological Neurological ROS: no confusion, no focal weakness, no weakness Internal Medicine - CN: Meds Atenolol [Tenormin] 25 mg PO DAILY 02/25/18 [History] Lisinopril [Zestril] 10 mg PO DAILY 02/25/18 [History] NIFEdipine [Nifedipine ER] 30 mg PO DAILY 02/25/18 [History] Simvastatin [Zocor] 40 mg PO DAILY 02/25/18 [History] 3 Allergy/AdvReac Type Severity Reaction Status Date / Time No Known Allergies Allergy Verified 01/27/17 10:08 Internal Medicine - CN: Exam - Constitutional Vitals: Temp Pulse Resp BP 98.0 F 74 18 159/119 03/03/18 09:00 03/03/18 09:00 03/03/18 09:00 03/03/18 09:00 General appearance IM: Present: A&O X 3, pleasant, no acute distress - Respiratory Respiratory exam: Present: CTAB - Cardiovascular Cardiovascular exam IM: Present: RRR, +S1, +S2 - Neurological Exam Neurological exam: Present: alert, normal gait, oriented X3, strengths equal and symetr throughout Consult Discharge Plan - Plan Referrals: Sita Fried [Outside] - 03/10/18 2:30 pm (The above appointment is with Alicia Garcia for [facility] health and substance abuse counseling. Please bring photo ID and insurance card.) [facility] Examination Supervisor Flower [Outside] - 03/08/18 1:15 pm (The above appointment is with Kassy Rangel CNP for psychiatric assessment and medication management. Please bring photo ID, and insurance card.) Winston Hatch, DO [Non-Partnered Physician] - (Per office policy, patient must call the office himself after discharge to arrange a follow-up appointment. )
--- NOTE | 2018-03-03 14:47 | Psychiatry Progress Note ---
Date of Encounter: 03/03/18 Time of Encounter: 14:30 Subjective Interval history: I ID Julio Beckett is a 52-year-old -Luxembourger man. He is single and lives alone. History of present illness. The patient has reported that his alcohol's been taken out of his house that his cousin who is a java flex developer Maikol Whitmore will be store and his weapons. A phone call we made to his niece Tala Bhagat about his current plans and efforts to maintain sobriety. I reviewed this with him. The patient is tolerating the medicine sertraline and I will give him a prescription for the medicine naltrexone at the time of discharge. The patient had a hospitalist evaluation for elevated blood pressure. He feels that his blood pressure will go back to normal but nonetheless because of elevated blood pressure for several days inside the hospital nifedipine was increased to 60 mg per day other options include increasing lisinopril but the patient like to hold off. He plans to follow-up with his primary care physician about one week after discharge but he needs to make an appointment. Is no suicidal ideation needs in a good mood although he is not sleeping as well. He looks forward to going home Review of Systems Neurological: Reports: memory loss Psychiatric: Reports: depression, suicidal ideation, memory loss Results - Vital Signs Vital Signs: Temp Pulse Resp BP 98.0 F 74 18 159/119 03/03/18 09:00 03/03/18 09:00 03/03/18 09:00 03/03/18 09:00 Assessment and Plan (1) Other specified persistent mood disorders Current visit: Yes Status: Acute Plan: Continue hospitalization, Close observation, Suicide Precautions per unit protocol, Encourage participation in unit milieu Risks, benefits, side effects , alternatives discussed w/pt: Yes Patient agreeable to treatment: Yes (2) Alcohol dependence with uncomplicated withdrawal Current visit: Yes Status: Chronic Plan: Group Therapy, Monitor sleep, Monitor appetite Risks, benefits, side effects, alternatives discussed w/pt: Yes Patient agreeable to treatment: Yes (3) Unspecified symptoms and signs involving cognitive functions and awareness Current visit: Yes Status: Acute Plan: Encourage participation in unit milieu, Family/Supportive other meeting Risks, benefits, side effects, alternatives discussed w/pt: Yes Patient agreeable to treatment: Yes (4) Traumatic subdural hemorrhage without loss of consciousness, sequela Current visit: Yes Status: Suspected Plan: Continue hospitalization Risks, benefits, side effects, alternatives discussed w/pt: Yes Patient agreeable to treatment: Yes (5) Suicidal ideation Current visit: No Status: Acute Plan: Secure weapons, Family/Supportive other meeting Risks, benefits, side effects, alternatives discussed w/pt: Yes Patient agreeable to treatment: Yes Consult Discharge Plan - Plan Referrals: Sita Fried [Outside] - 03/10/18 2:30 pm (The above appointment is with Alicia Garcia for [facility] and substance abuse counseling. Please bring photo ID and insurance card.) [facility] [employer] [facility] [Outside] - 03/08/18 1:15 pm (The above appointment is with Kassy Rangel CNP for psychiatric assessment and medication management. Please bring photo ID, and insurance card.) Winston Hatch, DO [Non-Partnered Physician] - (Per office policy, patient must call the office himself after discharge to arrange a follow-up appointment. ) Psychiatry Exam - Constitutional Vitals: Temp Pulse Resp BP 98.0 F 74 18 159/119 03/03/18 09:00 03/03/18 09:00 03/03/18 09:00 03/03/18 09:00 General appearance: age & developmentally appropriate, well-groomed, well- nourished - Musculoskeletal Gait: normal Station: relaxed Strength & Tone: normal for patient - Psychiatric Patient Orientation: Yes Person, Yes Time, Yes Place Level of alertness: Alert Behavior: calm, cooperative Psychomotor activity: Normal Eye Contact: Maintains Eye Contact Mood Description: Anxious Affect description: congruent with mood, full range Speech Volume: Normal Speech pattern: normal rate, normal rhythm, normal tone, fluent, spontaneous Language & Vocabulary: consistent with education Thought Process: Linear, Goal Oriented Thought Content: No Suicidal ideation, No Homicidal ideation, No Overt delusions Perceptual Disturbances: No Auditory hallucinations, No Visual hallucinations Attention Span Ability: Capable of Focused Attention Memory Description: Grossly Intact Patient Reliability: Reliable Historian Fund of knowledge: Yes abstraction ability, Yes aware of current events Intelligence Estimate: Average Judgment: Fair Insight: Partial
[2018-03-03] MEDS: traZODone 50 MG TABLET PO PRN (21:49)
[2018-03-04 08:34] VITALS: BP 149/111
--- NOTE | 2018-03-04 08:34 | Discharge Summary ---
Date of Encounter: 03/04/18 Time of Encounter: 08:00 Diagnosis - Discharge Diagnosis (1) Other specified persistent mood disorders Priority: Primary Status: Acute (2) Alcohol dependence with uncomplicated withdrawal Priority: Secondary Status: Chronic (3) Unspecified symptoms and signs involving cognitive functions and awareness Priority: Secondary Status: Chronic (4) Traumatic subdural hemorrhage without loss of consciousness, sequela Status: Resolved (5) Suicidal ideation Status: Resolved (6) Hypertension Status: Chronic Qualifiers: Hypertension type: essential hypertension Qualified Code(s): I10 - Essential (primary) hypertension Medications - Discharge Medications Prescriptions: NIFEdipine XL (24 HR) [Procardia XL] 60 mg PO DAILY 30 Days #30 tab.er.24 Atenolol [Tenormin] 25 mg PO DAILY 02/25/18 [History] Lisinopril [Zestril] 10 mg PO DAILY 02/25/18 [History] Simvastatin [Zocor] 40 mg PO DAILY 02/25/18 [History] NIFEdipine XL (24 HR) [Procardia XL] 60 mg PO DAILY 30 Days #30 tab.er.24 [Rx] 3 Allergy/AdvReac Type Severity Reaction Status Date / Time No Known Allergies Allergy Verified 01/27/17 10:08 Provider Date of admission: 02/27/18 14:19 Primary care physician: PCP NONE Consults: 03/03/18 08:41 Consult to Hospitalist [CONS] Routine Consulting Provider: Hospitalist Lisa Reason for Consult: Pt was admitted from . Pt with consistent elevated blood pressure. Please review and provide medication recommendations Time Notified: 08:42 Call Completed: Yes Discharging clinician: Alen Cordero Psychiatry Exam - Constitutional Vitals: Temp Pulse Resp BP 98.0 F 69 18 151/107 03/03/18 20:21 03/03/18 20:21 03/03/18 20:21 03/03/18 20:21 General appearance: age & developmentally appropriate, well-groomed, well- nourished - Musculoskeletal Gait: normal Station: relaxed Strength & Tone: normal for patient - Psychiatric Patient Orientation: Yes Person, Yes Time, Yes Place Level of alertness: Alert Behavior: calm, cooperative Psychomotor activity: Normal Eye Contact: Maintains Eye Contact Mood Description: Euthymic/stable Affect description: congruent with mood, full range Speech Volume: Normal Speech pattern: normal rate, normal rhythm, normal tone, fluent, spontaneous Language & Vocabulary: consistent with education Thought Process: Linear, Goal Oriented Thought Content: No Suicidal ideation, No Homicidal ideation, No Overt delusions Perceptual Disturbances: No Auditory hallucinations, No Visual hallucinations Attention Span Ability: Capable of Focused Attention Memory Description: Grossly Intact Patient Reliability: Reliable Historian Fund of knowledge: Yes abstraction ability, Yes aware of current events Intelligence Estimate: Average Judgment: Fair Insight: Partial Hospital Course Hospital course: Mr. Becktet is a 52 year old male Chief complaint: I will give up drinking. History of present illness: The patient had been admitted to the hospital for alcohol withdrawal. He had a very high blood alcohol on admission to the medical hospital and required several days on the medical floor. The patient was an interhospital transfer because the presence of suicidal ideation. The patient had been drinking heavily at his home and had called a family member indicating that he was not wanting to live like this or not wanting to go on. Patient cannot recall exactly what was said. But there were concerns the patient had suicidal ideation with the plan he lives alone he has guns in his home. Consequently the patient was placed on a pink slip. The patient later signed voluntary in the hospital. The patient attempted to reduce or minimize his drinking but he agreed that he would become abstinent from alcohol. The patient had dense from the hospital stay and physical exam of alcohol dependence area The patient had depressive symptoms and these included some lack of interest and energy. These tended to be episodic or intermittent. The patient was placed on sertraline and the dose 50 mg and tolerated this. The patient had a history of a subdural hematoma proximally 1 year ago. This later resolved without neurosurgical intervention. However the patient reported a long history and perhaps recent worsening of memory problems word finding difficulties and some cognitive difficulties. During the hospital stay the patient's blood pressure remained persistently elevated he attributed this to being in the hospital and felt normalized after discharge. Hospitalist consult was obtained and the patient's regimen was reviewed nifedipine was increased to 60 mg per day. The patient was advised to remain abstinent from alcohol. He had arranged mental health follow-up and alcohol dependence follow-up area the patient's primary care physician will be sent a letter about the patient's hospital stay and recent change in blood pressure medicines. In that letter was recommended that the patient begin naltrexone 25 mg every afternoon for 2 nights and then 50 mg per day. The combination of naltrexone and sertraline may be helpful going forward. The patient's family members were contacted and the niece had removed and verified that all alcohol was out of the house and that the 4 guns that the patient possessed would be kept to a friend's house in a safe and secure location. The patient agreed to this plan. He recognized that he needed to stop drinking and that alcohol was causing him problems. However this patient education may require reinforcement. - Time Spent with Patient Total time spent providing and/or coordinating discharge services: Less than 30 minutes Assessment and Plan - Patient/Caregiver Discharge Instructions Activity: resume usual activities as tolerated Diet: regular diet Additional Instructions: NO ALCOHOL - Follow up Plan Follow up with: Sita Fried [Outside] - 03/10/18 2:30 pm (The above appointment is with Alicia Garcia for [facility] and substance abuse counseling. Please bring photo ID and insurance card.) [facility] [Outside] - 03/08/18 1:15 pm (The above appointment is with Kassy Rangel CNP for psychiatric assessment and medication management. Please bring photo ID, and insurance card.) Winston Hatch, DO [Non-Partnered Physician] - (Per office policy, patient must call the office himself after discharge to arrange a follow-up appointment. ) Functional capacity at discharge: independent ambulation Overall status at discharge: Stable Disposition: Home, Self-Care Quality - Multiple Antipsychotics Patient discharged on 2 or more antipsychotic medications: No Procedures - Procedures Procedures: Medication Management, Crisis Stabilization, Supportive Therapy, Group Therapy, Psychoeducational Therapy
[2018-03-04] MEDS: NIFEdipine XL (24 HR) 60 MG TAB.ER.24 PO SCH (09:17)
== END 2018-03-04 14:10 | disposition home or self-care (01) | DRG 885 ==
LOC: 1ANU 14:19 → SUATTDRO 14:19
PROVIDERS: ADMIT Psychiatry & Neurology Psychiatry; ATTEND Psychiatry & Neurology Forensic Psychiatry